=== PATIENT | male | born 1965 | race Caucasian/White ===

== ENCOUNTER 2016-04-29 17:33 | Emergency (ER) | payer BC, OTHER ==
[~2016-04-29] VITALS: Ht 180.3 cm; Wt 79.4 kg
[~2016-04-29 17:33] MED LIST: AMOX500C2 PO; AMPH20TA2 PO; ASP325T PO; ASPI-586 PO; CARV3.122 PO; CPR500T PO; CYCL10TA9 PO; DIAZ10TA; DOXY100C2 PO; FRS325T PO; HCA25SU PR; HYDR-3720 PO; HYDR-757 PO; HYDR118S10 PO; HYDR1TAB8 OP; IBUP800T26 PO; LSNP20T PO; METH10TA3 PO; MORP15TA69 PO; NAPR-243 PO; NAPR500T PO; NITR-65 PO; PRD20T PO; PRIMATENE MIST; PROP1TAB77 PO; SULF-222 PO; SULF1TAB35 PO; SULF1TAB38; TRAM-42 PO; TRM50T PO; [UNRECOGNIZED DRUG - OTHER]
--- OUTSIDE RECORDS SUMMARY | 2016-04-29 17:39 | XMS REPORT | Continuity of Care Document ---
Author Author [facility] Address Unknown Phone Unavailable Allergies Active Description Code Type Severity Reaction Onset Reported/Identified Relationship to Patient Clinical Status Yes levofloxacin [id number] Drug Allergy Mild N/A 09/10/2011 Medications Problems Date Dx Coded Attending Type Code Diagnosis Diagnosed By 09/10/2010 Ot 604.90 ORCHITIS/EPIDIDYMIT NOS 09/10/2010 Ot 608.9 MALE GENITAL DIS NOS 09/14/2010 Ot 604.90 ORCHITIS/EPIDIDYMIT NOS 05/04/2011 Ot 070.70 UNSPECIFIED VIRAL HEPATITIS C WITHOUT HE 05/04/2011 Ot 285.1 AC POSTHEMORRHAG ANEMIA 05/04/2011 Ot 289.51 CHR CONGEST SPLENOMEGALY 05/04/2011 Ot 296.80 BIPOLAR DISORDER, UNSPECIFIED 05/04/2011 Ot 305.20 CANNABIS ABUSE-UNSPEC 05/04/2011 Ot 305.50 OPIOID ABUSE-UNSPEC 05/04/2011 Ot 305.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 ABUSE-UNSPEC 05/04/2011 Ot 530.81 ESOPHAGEAL REFLUX 05/04/2011 Ot 535.60 DUODENITIS, WITHOUT MENTION OF HEMORRHAG 05/04/2011 Ot 553.3 DIAPHRAGMATIC HERNIA 05/04/2011 Ot 569.3 RECTAL ANAL HEMORRHAGE 05/04/2011 Ot 571.5 CIRRHOSIS OF LIVER NOS 05/04/2011 Ot 682.6 CELLULITIS OF LEG 05/04/2011 Ot 785.6 ENLARGEMENT LYMPH NODES 07/22/2011 Ot 724.2 LUMBAGO 09/13/2011 Ot 070.70 UNSPECIFIED VIRAL HEPATITIS C WITHOUT HE 09/13/2011 Ot 280.0 CHR BLOOD LOSS ANEMIA 09/13/2011 Ot 300.00 ANXIETY STATE NOS 09/13/2011 Ot 311 DEPRESSIVE DISORDER NEC 09/13/2011 Ot 403.90 HYPTNSV CHR KID DIS, UNSPEC, W CHR KD ST 09/13/2011 Ot 435.9 TRANS CEREB ISCHEMIA NOS 09/13/2011 Ot 455.2 INT HEMRRHOID W COMP NEC 09/13/2011 Ot 461.9 ACUTE SINUSITIS NOS 09/13/2011 Ot 585.9 CHRONIC KIDNEY DISEASE, UNSPECIFIED 09/13/2011 Ot 724.5 BACKACHE NOS 09/13/2011 Ot V15.82 HISTORY OF TOBACCO USE 10/07/2011 Ot 724.2 LUMBAGO 10/07/2011 Ot 724.3 SCIATICA 10/07/2011 Ot 846.0 SPRAIN LUMBOSACRAL 10/07/2011 Ot E000.8 OTHER EXTERNAL CAUSE STATUS 10/07/2011 Ot E849.0 ACCIDENT IN HOME 10/07/2011 Ot E880.9 FALL ON STAIR/STEP NEC 03/17/2012 Ot 285.9 ANEMIA NOS 03/17/2012 Ot 305.20 CANNABIS ABUSE-UNSPEC 03/17/2012 Ot 305.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 ABUSE-UNSPEC 03/17/2012 Ot 782.3 EDEMA 03/17/2012 Ot 788.20 RETENTION OF URINE NOS 03/17/2012 Ot V58.69 OTH MED,LT,CURRENT USE 07/13/2012 GISELL SCALES MD Ot 780.93 MEMORY LOSS 07/13/2012 GISELL SCALES MD Ot 786.05 SHORTNESS OF BREATH 07/31/2013 TOÑO BARRETO MD Ot 296.80 BIPOLAR DISORDER, UNSPECIFIED 07/31/2013 TOÑO BARRETO MD Ot 338.29 OTHER CHRONIC PAIN 07/31/2013 TOÑO BARRETO MD Ot 493.90 ASTHMA, UNSPECIFIED 07/31/2013 TOÑO BARRETO MD Ot 550.90 UNILAT INGUINAL HERNIA 07/31/2013 TOÑO BARRETO MD Ot 716.90 ARTHROPATHY NOS-UNSPEC 07/31/2013 TOÑO BARRETO MD Ot 722.6 DISC DEGENERATION NOS 07/31/2013 TOÑO BARRETO MD Ot V12.54 PERSONAL HX OF TIA, CEREBRAL INFARCTION 10/31/2013 LAURA LUNDBERG APRN Ot 354.1 MEDIAN NERVE LESION NEC 10/31/2013 LAURA LUNDBERG APRN Ot 782.0 SKIN SENSATION DISTURB 11/02/2013 LAURA LUNDBERG APRN Ot 724.1 PAIN IN THORACIC SPINE 11/02/2013 LAURA LUNDBERG APRN Ot 724.4 LUMBOSACRAL NEURITIS NOS 11/02/2013 LAURA LUNDBERG APRN Ot 782.0 SKIN SENSATION DISTURB 07/25/2014 Ot 070.54 07/25/2014 Ot 280.9 07/25/2014 Ot 305.90 07/25/2014 Ot 578.9 07/25/2014 Ot V15.82 07/25/2014 VESNA BATRES Ot 305.20 CANNABIS ABUSE-UNSPEC 07/25/2014 VESNA BATRES Ot 305.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 ABUSE-UNSPEC 07/25/2014 VESNA BATRES Ot 550.90 UNILAT INGUINAL HERNIA 07/25/2014 VESNA BATRES Ot 564.00 UNSPEC CONSTIPATION 07/25/2014 VESNA BATRES Ot 789.03 ABDOMINAL PAIN, RIGHT LOWER QUADRANT 09/08/2014 LAURA LUNDBERG PRESETTER OPERATOR Ot 604.99 ORCHITIS/EPIDIDYMIT NEC 09/08/2014 LAURA LUNDBERG PRESETTER OPERATOR Ot 608.86 EDEMA, MALE GENITAL ORGN 09/09/2014 LAURA LUNDBERG PRESETTER OPERATOR Ot 604.90 ORCHITIS/EPIDIDYMIT NOS 09/09/2014 LAURA LUNDBERG PRESETTER OPERATOR Ot 724.1 PAIN IN THORACIC SPINE 09/09/2014 LAURA LUNDBERG PRESETTER OPERATOR Ot 724.5 BACKACHE NOS 09/20/2014 VESNA BATRES Ot 599.0 URIN TRACT INFECTION NOS 09/20/2014 VESNA BATRES Ot 789.03 ABDOMINAL PAIN, RIGHT LOWER QUADRANT 09/20/2014 VESNA BATRES Ot 848.8 SPRAIN NEC 09/20/2014 VESNA BATRES Ot E000.8 OTHER EXTERNAL CAUSE STATUS 09/20/2014 VESNA BATRES Ot E928.9 ACCIDENT NOS 11/08/2014 Ot 070.54 11/08/2014 Ot 280.9 11/08/2014 Ot 305.90 11/08/2014 Ot 578.9 11/08/2014 Ot V15.82 11/08/2014 GYPSY YODER MD Ot 723.0 CERVICAL SPINAL STENOSIS 11/08/2014 GYPSY YODER MD Ot 723.4 BRACHIAL NEURITIS NOS 11/08/2014 GYPSY YODER MD Ot 782.0 SKIN SENSATION DISTURB 11/08/2014 Ot 070.54 11/08/2014 Ot 280.9 11/08/2014 Ot 305.90 11/08/2014 Ot 578.9 11/08/2014 Ot V15.82 03/17/2015 Ot 070.54 03/17/2015 Ot 280.9 03/17/2015 Ot 305.90 03/17/2015 Ot 578.9 03/17/2015 Ot V15.82 03/17/2015 PARESH PUTNAM, GYPSY Uriostegui Ot F12.10 CANNABIS ABUSE, UNCOMPLICATED 03/17/2015 PARESH PUTNAM, GYPSY Uriostegui Ot F15.10 OTHER STIMULANT ABUSE, UNCOMPLICATED 03/17/2015 PARESH PUTNAM, GYPSY Uriostegui Ot F17.210 NICOTINE DEPENDENCE, CIGARETTES, UNCOMPL 03/17/2015 GYPSY YODER MD Ot L03.012 CELLULITIS OF LEFT FINGER 03/17/2015 GYPSY YODER MD Ot S61.215A LACERATION W/O FB OF L RNG FNGR W/ O THIAGO 03/17/2015 GYPSY YODER MD Ot W26.0XXA CONTACT WITH KNIFE, INITIAL ENCOUNTER 03/17/2015 PARESH PUTNAM, GYPSY Uriostegui Ot Y92.[address] [facility] [address] NON-INSTITUT ( PRIVATE 03/17/2015 GYPSY YODER MD Ot Y99.8 OTHER EXTERNAL CAUSE STATUS 03/17/2015 GYPSY YODER MD Ot Z23 ENCOUNTER FOR IMMUNIZATION 05/08/2015 Ot 070.54 05/08/2015 Ot 280.9 05/08/2015 Ot 305.90 05/08/2015 Ot 578.9 05/08/2015 Ot V15.82 05/08/2015 CAMPOS DO, FITZ L Ot K59.00 CONSTIPATION, UNSPECIFIED 05/29/2015 CAMPOS DO, FITZ L Ot K59.00 06/20/2015 Ot 070.54 CHRONIC HEPATITIS C W/O HEPATIC COMA 06/20/2015 Ot 280.9 IRON DEFIC ANEMIA NOS 06/20/2015 Ot 305.90 DRUG ABUSE NEC-UNSPEC 06/20/2015 Ot 578.9 GASTROINTEST HEMORR NOS 06/20/2015 Ot V15.82 HISTORY OF TOBACCO USE 06/20/2015 VESNA BATRES Ot L03.116 CELLULITIS OF LEFT LOWER LIMB 06/20/2015 VESNA BATRES Ot Z23 ENCOUNTER FOR IMMUNIZATION 06/20/2015 VESNA BATRES Ot Z87.891 PERSONAL HISTORY OF NICOTINE DEPENDENCE 07/18/2015 VESNA BATRES Ot L03.116 CELLULITIS OF LEFT LOWER LIMB 07/18/2015 VESNA BATRES Ot Z23 ENCOUNTER FOR IMMUNIZATION 07/18/2015 VESNA BARTES Ot Z87.891 PERSONAL HISTORY OF NICOTINE DEPENDENCE Procedures Code Description Performed By Performed On 45.16 05/02/2011 45.23 05/02/2011 45.23 09/12/2011 Results Encounters ACCT No. Visit Date/Time Discharge Status Pt. Type Provider Facility Loc./Unit Complaint [id number] 03/10/2014 15:52:00 03/10/2014 23: 59:59 [facility] Outpatient [place] D[place] [id number] 07/27/2008 15:40:00 07/27/2008 23: 59:59 [facility] Outpatient WILLIS BOWDEN
[2016-04-29] MEDS ORDERED: LIDOCAINE 2% 20 ML (XYLOCAINE) VIAL INJ ONE (17:45)
--- NOTE | 2016-04-29 17:49 | ED Lower Extremity ---
General Stated Complaint: L KNEE PAIN Source: patient Exam Limitations: no limitations History of Present Illness Time seen by provider: 17:48 Initial Comments To ER with left knee pain. This been ongoing for a few days. States that it pops and clicks when he is riding his bicycle. Today it seems swollen. No fevers or chills. Onset: just prior to arrival Severity: moderate Pain/Injury Location: left knee Method of Injury: unknown Modifying Factors: Worse With Movement Allergies and Home Medications Allergies Coded Allergies: levofloxacin (Verified Allergy, Mild, 09/10/11) Home Medications Aspirin 81 Mg Tablet.dr 81 MG PO DAILY (Reported) Hydrocodone Bit/Acetaminophen 1 Each Tablet #10 1 EA PO Q6H PRN PRN MILD PAIN Do not fill unless Bactrim DS is also filled. Prescribed by: LAURA LUNDBERG on 09/09/14 1132 Ibuprofen 800 Mg Tablet #30 800 MG PO Q8H PRN PRN PAIN Prescribed by: LAURA LUNDBERG on 04/29/16 1807 Methylphenidate HCl 10 Mg Tablet Unknown Dose PO DAILY (Reported) Morphine Sulfate 15 Mg Tablet.er 15 MG PO DAILY (Reported) Naproxen 500 Mg Tablet #20 500 MG PO BID PRN PRN PAIN Prescribed by: VESNA POWELL on 06/20/15 1634 Sulfamethoxazole/Trimethoprim 1 Each Tablet #20 1 EACH PO BID Take 2 tablets for the first dose Prescribed by: GYPSY ABRAMS on 03/17/15 1158 Sulfamethoxazole/Trimethoprim 1 Each Tablet #20 1 EACH PO BID Prescribed by: VESNA POWELL on 06/20/15 1634 Tramadol HCl 50 Mg Tablet 50 MG PO Q6H PRN PRN PAIN (Reported) Constitutional: see HPINo chills, No fever EENTM: see HPI Respiratory: no symptoms reported Cardiovascular: no symptoms reported Genitourinary: no symptoms reported Musculoskeletal: see HPI joint swelling Skin: no symptoms reported Psychiatric/Neurological: No Symptoms Reported Past Cklweyl-Ugggth-Jxpewn Hx Patient Social History Former Smoker/When Quit: Mar 03, 1997 Recent Foreign Travel: No Contact w/Someone Who Travel: No Immunizations Up To Date Tetanus Booster (TDap): Unknown Seasonal Allergies Seasonal Allergies: No Surgeries HX Surgeries: Yes (BACK SURGERY, STABBED IN LEFT KNEE) Surgeries: Gallbladder Respiratory Hx Respiratory Disorders: Yes Respiratory Disorders: Asthma Cardiovascular Hx Cardiac Disorders: Yes ( REPORTS HX HTN) Cardiac Disorders: Hypertension Neurological Hx Neurological Disorders: Yes (APHASIA HX, narcolepsy) Neurological Disorders: TIA Reproductive System Sexually Transmitted Disease: No Genitourinary Hx Genitourinary Disorders: Yes Genitourinary Disorders: Renal Failure Gastrointestinal Hx Gastrointestinal Disorders: Yes (HERNIA) Gastrointestinal Disorders: Gastrointestinal Bleed, Hepatitis Musculoskeletal Hx Musculoskeletal Disorders: Yes (REMOVED A DISC. chronic left foot pain) Musculoskeletal Disorders: Degenerate Disk Disease, Arthritis, Back Injury, Chronic Back Pain Endocrine Hx Endocrine Disorders: No HEENT HX ENT Disorders: No Cancer Hx Cancer: No Psychosocial Hx Psychiatric Problems: No (INFORMATION OBTAINED FROM OLD RECORDS) Behavioral Health Disorders: Bipolar, Personality Disorder Integumentary HX Skin/Integumentary Disorder: No Blood Transfusions Hx Blood Disorders: Yes (unknown bleeding disorder (seeing electrode cleaner for it) , anemia, transfusion) Family Medical History Significant Family History: No Pertinent Family Hx Physical Exam Vital Signs Vital Sign - Last 12Hours 04/29/16 17:36 Temp 97.6 Pulse 105 Resp 18 B/P 152/109 Capillary Refill : General Appearance: WD/WN no apparent distress HEENT: PERRL/EOMI normal ENT inspection Neck: non-tender full range of motion Respiratory: no respiratory distress no accessory muscle use Hips: bilateral hip non-tender, bilateral hip normal inspection, bilateral hip normal range of motion Legs: bilateral leg non-tender, bilateral leg normal inspection, bilateral leg normal range of motion Knees: left knee pain, left knee soft tissue tenderness, left knee other (no erythema or ecchymosis. However there is a palpable effusion) Ankles: bilateral ankle non-tender, bilateral ankle normal inspection, bilateral ankle normal range of motion Feet: bilateral foot non-tender, bilateral foot normal inspection, bilateral foot normal range of motion Neurologic/Psychiatric: alert normal mood/affect oriented x 3 Skin: normal color warm/dry Progress/Results/Core Measures Results/Orders Lab Results Laboratory Tests Test 04/29/16 17:58 Range/Units Body Fluid Appearance MOD CLDY Body Fluid Color YELLOW Body Fluid Crystals NOT SEEN Body Fluid RBC 6900 /uL Body Fluid Source SYNOVIAL Body Fluid WBC 150 /uL My Orders Orders-LAURA LUNDBERG APRN Lidocaine 2% Injection 20 Ml (Xylocaine (04/29/16 17:45) Body Fluid Cell Count (04/29/16 17:45) Crystals,Body Fluid (04/29/16 17:45) Body Fluid Culture (04/29/16 17:47) Knee, Left, 3 Views (04/29/16 18:04) Ketorolac Injection (Toradol Injection) (04/29/16 18:15) Medications Given in ED Current Medications Medications Dose Ordered Sig/Venkat Route Start Time Stop Time Status Last Admin Dose Admin Ketorolac Tromethamine 60 mg ONCE ONCE IM 04/29/16 18:15 04/29/16 18:16 DC 04/29/16 18:14 60 MG Lidocaine HCl 20 ml ONCE ONCE INJ 04/29/16 17:45 04/29/16 17:47 DC 04/29/16 18:17 3 ML Vital Signs/I&O Vital Sign - Last 12Hours 04/29/16 17:36 Temp 97.6 Pulse 105 Resp 18 B/P 152/109 Departure Communication Progress Notes 1805-under sterile technique, knee was aspirated. The knee was cleaned with iodine and allowed to dry over the medial aspect. This was anesthetized with 3 mL of 2 percent lidocaine without epinephrine. A larger 18-gauge 1/2 inch needle attached to a 20 mL syringe using sterile technique was inserted into the joint space and 25 mL of kate colored clear fluid was aspirated. This was sent to lab for cell count, culture, Crystal analysis. Impression Impression: Primary Impression: Knee effusion, left Additional Impression: Internal derangement of knee Disposition: 01 HOME, SELF-CARE Condition: Stable Departure-Patient Inst. Decision time for Depature: 18:06 Referrals: MARISOL NOLASCO MD [facility] (PCP/Family) Primary Care Physician SANDY MORALES MD, JOHN T MD STRINGER, ROBERT F DO ZAFUTA,TED Vizcarra MD Patient Instructions: Internal Derangement of the Knee Add. Discharge Instructions: 1. Follow-up with the orthopedic surgeons listed 2. Call tomorrow for an appointment 3. Medication as directed Scripts Ibuprofen 800 Mg Svasra178 Mg PO Q8H PRN PAIN #30 TAB Prov:LAURA LUNDBERG LEGAL ARCHIVIST 04/29/16 LAURA LUNDBERG LEGAL ARCHIVIST Apr 29, 2016 17:49
[2016-04-29] MEDS ORDERED: IBUP-1780 PO (18:07)
[2016-04-29] MEDS ORDERED: KETOROLAC 60 MG/2 ML VIAL IM ONE (18:15)
--- NOTE | 2016-04-29 18:45 | Diagnostic Imaging Report ---
INDICATION: A 50-year-old male presents with left knee pain. COMPARISONS: 06/20/2015. FINDINGS: Three views of the left knee show degenerative changes in the left knee with some marginal osteophytes. There is however no evidence of new or healing fractures. A suprapatellar joint effusion is suggested. No evidence of acute fracture or subluxation is seen. IMPRESSION: 1. Moderate degenerative changes of the left knee, but no evidence of acute fracture or subluxation. 2. A suprapatellar joint effusion noted. Perhaps, an MRI may be of further value to assess for internal derangement. Dictated by: Dictated on workstation # [id number]
[2016-04-29 18:50] VITALS: BP 148/98
== END 2016-04-29 18:47 | disposition home or self-care (01) ==
LOC: EDUNIT# 17:33 → ER 17:35
DX: M25.462 Effusion, left knee (principal); M23.92 Unspecified internal derangement of left knee; Z79.82 Long term (current) use of aspirin; Z79.899 Other long term (current) drug therapy
CPT/HCPCS: 73562; 87070; 87205; 89051; 89060; 96372; 99283

== ENCOUNTER → 2016-04-30 | Outpatient (CLI) | payer OTHER ==
[~2016-04-30] MED LIST changes: +CYCL5TAB PO; +IBUP-1780 PO
--- OUTSIDE RECORDS SUMMARY | 2016-04-30 08:34 | XMS REPORT | Continuity of Care Document ---
Author Author [facility] Address Unknown Phone Unavailable Allergies Active Description Code Type Severity Reaction Onset Reported/Identified Relationship to Patient Clinical Status Yes levofloxacin [id number] Drug Allergy Mild N/A 09/10/2011 Medications Problems [...] PAIN, RIGHT LOWER QUADRANT 09/08/2014 LAURA LUNDBERG MECHANICAL DEVELOPMENT ENGINEER Ot 604.99 ORCHITIS/EPIDIDYMIT NEC 09/08/2014 LAURA LUNDBERG MECHANICAL DEVELOPMENT ENGINEER Ot 608.86 EDEMA, MALE GENITAL ORGN 09/09/2014 LAURA LUNDBERG MECHANICAL DEVELOPMENT ENGINEER Ot 604.90 ORCHITIS/EPIDIDYMIT NOS 09/09/2014 LAURA LUNDBERG MECHANICAL DEVELOPMENT ENGINEER Ot 724.1 PAIN IN THORACIC SPINE 09/09/2014 LAURA LUNDBERG MECHANICAL DEVELOPMENT ENGINEER Ot 724.5 BACKACHE NOS 09/20/2014 VESNA BATRES [...] 03/17/2015 PARESH PUTNAM, GYPSY Uriostegui Ot Y92.[address] [facility] Ot Z23 ENCOUNTER FOR IMMUNIZATION 07/18/2015 VESNA BATRES Ot Z87.891 PERSONAL HISTORY OF NICOTINE DEPENDENCE Procedures Code Description Performed By Performed On 45.16 05/02/2011 45.23 05/02/2011 45.23 09/12/2011 Results Test Result Range Body fluid cell count - 04/29/16 17:58 Specimen source identification of body fluid SYNOVIAL NRG Evaluation of color of body fluid YELLOW NRG Determination of appearance of body fluid MOD CLDY NRG Body fluid leukocytes count (number/volume) 150 /uL NRG Body fluid erythrocytes count (number/volume) 6900 /uL NRG Manual body fluid polymorphonuclear cells/100 leukocytes 12 % NRG Manual body fluid mononuclear cells/100 leukocytes 4 % NRG Manual body fluid lymphocytes/100 leukocytes 84 % NRG Other cells/100 leukocytes in body fluid by manual count 0 % NRG * Body fluid crystals type by light microscopy - 04/29/16 17:58 * Body fluid crystals type by light microscopy NOT SEEN NRG Encounters ACCT No. Visit Date/Time Discharge Status Pt. Type Provider Facility Loc./Unit Complaint [id number] 03/10/2014 15:52:00 03/10/2014 23: 59:59 [facility] Outpatient [place]FINO [place]ELHO D[place] [id number] 07/27/2008 15:40:00 07/27/2008 23: 59:59 [facility] Outpatient WILLIS BOWDEN
--- NOTE | 2016-04-30 11:18 | Diagnostic Imaging Report ---
PROCEDURE: US Abdomen, limited. TECHNIQUE: Multiple realtime grayscale images were obtained over the abdomen in various projections. INDICATION: Pain near the right inguinal region. FINDINGS: Examination for hernia with and without Valsalva maneuver demonstrates no evidence of hernia. No fluid collection or a mass is identified in the region. Bowel gas obscures deeper structures. IMPRESSION: No definite abnormality. Dictated by: Dictated on workstation # [id number]
== END ==
LOC: RAD 08:30
PROVIDERS: ATTEND Family Medicine
DX: R10.31 Right lower quadrant pain (principal)
CPT/HCPCS: 76705

== ENCOUNTER 2016-07-06 15:42 | Emergency (ER) | payer SELFPAY ==
[~2016-07-06] VITALS: Ht 182.9 cm; Wt 78.0 kg
[~2016-07-06 15:42] MED LIST changes: -CYCL5TAB PO
[2016-07-06] MEDS ORDERED: ORPHENADRINE 60 MG/2 ML (NORFLEX) AMP IM ONE (16:15)
[2016-07-06] MEDS ORDERED: KETOROLAC 60 MG/2 ML VIAL IM ONE (16:15)
--- NOTE | 2016-07-06 16:15 | ED Back Pain ---
General Stated Complaint: BACK PAIN Source of Information: Patient Exam Limitations: No Limitations History of Present Illness Time Seen by Provider: 16:13 Initial Comments Patient to ER with 2-3 days of right low back pain. This radiates to the right hip and right flank. He states that he is only urinated one time today. This began 2-3 days ago when he was lifting the cover off of a washing machine. Pain is worsened by movement. No cough or shortness of breath. No loss of bowel or bladder control. No saddle anesthesia or hypoesthesia. Pain does not radiate down the leg. Patient is well-known to the emergency room here for his frequent complaints of back pain. Location: Lumbar Spine, Paraspinous Muscles Timing/Duration: 2-3 Days Severity: Moderate Associated Symptoms: lower back pain Allergies and Home Medications Allergies Coded Allergies: levofloxacin (Verified Allergy, Mild, 09/10/11) Home Medications Aspirin 81 Mg Tablet.dr, 81 MG PO DAILY, (Reported) Cyclobenzaprine HCl 5 Mg Tablet, 5 MG PO TID PRN for PAIN-MILD TO MODERATE, #20 Prescribed by: LAURA LUNDBERG on 07/06/16 1721 Hydrocodone Bit/Acetaminophen 1 Each Tablet, 1 EA PO Q6H PRN for MILD PAIN, #10 Do not fill unless Bactrim DS is also filled. Prescribed by: LAURA LUNDBERG on 09/09/14 1132 Ibuprofen 800 Mg Tablet, 800 MG PO Q8H PRN for PAIN, #30 Prescribed by: LAURA LUNDBERG on 04/29/16 1807 Methylphenidate HCl 10 Mg Tablet, Unknown Dose PO DAILY, (Reported) Morphine Sulfate 15 Mg Tablet.er, 15 MG PO DAILY, (Reported) Naproxen 500 Mg Tablet, 500 MG PO BID PRN for PAIN, #20 Ref 0 Prescribed by: VESNA POWELL on 06/20/15 1634 Sulfamethoxazole/Trimethoprim 1 Each Tablet, 1 EACH PO BID, #20 Take 2 tablets for the first dose Prescribed by: GYPSY ABRAMS on 03/17/15 1158 Sulfamethoxazole/Trimethoprim 1 Each Tablet, 1 EACH PO BID, #20 Ref 0 Prescribed by: VESNA POWELL on 06/20/15 1634 Tramadol HCl 50 Mg Tablet, 50 MG PO Q6H PRN for PAIN, (Reported) Constitutional: see HPI, No chills, No fever EENTM: see HPI Respiratory: no symptoms reported Cardiovascular: no symptoms reported Genitourinary: no symptoms reported Musculoskeletal: see HPI, back pain Skin: no symptoms reported Psychiatric/Neurological: No Symptoms Reported Past Ixcnpch-Jenxeh-Atxygb Hx Patient Social History Former Smoker/When Quit: Mar 03, 1997 Recent Foreign Travel: No Contact w/Someone Who Travel: No Recent Hopitalizations: Yes Immunizations Up To Date Tetanus Booster (TDap): Unknown Seasonal Allergies Seasonal Allergies: No Surgeries HX Surgeries: Yes (BACK SURGERY, STABBED IN LEFT KNEE) Surgeries: Gallbladder Respiratory Hx Respiratory Disorders: Yes Respiratory Disorders: Asthma Cardiovascular Hx Cardiac Disorders: Yes ( REPORTS HX HTN) Cardiac Disorders: Hypertension Neurological Hx Neurological Disorders: Yes (APHASIA HX, narcolepsy) Neurological Disorders: TIA Reproductive System Sexually Transmitted Disease: No Genitourinary Hx Genitourinary Disorders: Yes Genitourinary Disorders: Renal Failure Gastrointestinal Hx Gastrointestinal Disorders: Yes (HERNIA) Gastrointestinal Disorders: Gastrointestinal Bleed, Hepatitis Musculoskeletal Hx Musculoskeletal Disorders: Yes (REMOVED A DISC. chronic left foot pain) Musculoskeletal Disorders: Degenerate Disk Disease, Arthritis, Back Injury, Chronic Back Pain Endocrine Hx Endocrine Disorders: No HEENT HX ENT Disorders: No Cancer Hx Cancer: No Psychosocial Hx Psychiatric Problems: No (INFORMATION OBTAINED FROM OLD RECORDS) Behavioral Health Disorders: Bipolar, Personality Disorder Integumentary HX Skin/Integumentary Disorder: No Blood Transfusions Hx Blood Disorders: Yes (unknown bleeding disorder (seeing court crier for it) , anemia, transfusion) Family Medical History Significant Family History: No Pertinent Family Hx Physical Exam Vital Signs Vital Sign - Last 12Hours 07/06/16 07/06/16 16:10 17:24 Temp 98.9 Pulse 117 Resp 16 B/P (MAP) 134/100 Pulse Ox 98 Capillary Refill : General Appearance: No Apparent Distress, WD/WN HEENT: PERRL/EOMI, TMs Normal Neck: Full Range of Motion, Normal Inspection Respiratory: No Accessory Muscle Use, No Respiratory Distress Gastrointestinal: Non Tender, Soft Back: Other (right low back panel padder to palpation) Extremity: Normal Capillary Refill, Normal Inspection Neurologic/Psychiatric: Alert, Oriented x3, No Motor/Sensory Deficits Skin: Normal Color, Warm/Dry Progress/Results/Core Measures Results/Orders My Orders Orders - LAURA LUNDBERG APRN Ct Abd/Pelvis Wo(Kidney Stone) (07/06/16 16:12) Ketorolac Injection (Toradol Injection) (07/06/16 16:15) Orphenadrine Injection (Norflex Injectio (07/06/16 16:15) Medications Given in ED Current Medications Medications Dose Ordered Sig/Venkat Route Start Time Stop Time Status Last Admin Dose Admin Ketorolac Tromethamine 60 mg ONCE ONCE IM 07/06/16 16:15 07/06/16 16:16 DC 07/06/16 16:37 60 MG Orphenadrine Citrate 60 mg ONCE ONCE IM 07/06/16 16:15 07/06/16 16:16 DC 07/06/16 16:38 60 MG Vital Signs/I&O Vital Sign - Last 12Hours 07/06/16 07/06/16 16:10 17:24 Temp 98.9 Pulse 117 77 Resp 16 16 B/P (MAP) 134/100 Pulse Ox 98 Diagnostic Imaging Diagonstic Imaging: Xray Comments NAME: JONAS VIEIRA [facility] REC#: [id number] PT STATUS: REG ER : 1965 PHYSICIAN: LAURA LUNDBERG APRN ADMIT DATE: 07/06/16/ER Draft Date of Exam:07/06/16 CT ABD/PELVIS WO(KIDNEY STONE) PROCEDURE: CT urinary tract, rule out kidney stone. TECHNIQUE: Multiple contiguous axial images were obtained through the abdomen and pelvis without the use of intravenous contrast. INDICATION: Kidney stones, chronic right lower back pain that is worse in the last 3-4 days. EXAMINATION: CT abdomen and pelvis without contrast, 07/06/2016. COMPARISON: 07/25/2014. FINDINGS: The lung bases demonstrate bibasilar dependent atelectasis. Within the abdomen and pelvis no nephrolithiasis or hydronephrosis is seen on either side with no definite ureteral stones appreciated. There is a tiny hyperdensity along the right anterior to the right psoas muscle which appears to be lateral to the expected location of the right ureter. There are multiple calcifications within the right hemipelvis. These appear to represent platelets. The urinary bladder wall is thickened but could be due to under-distention versus size, correlate clinically. Findings of constipation noted throughout the colon. No surrounding inflammatory changes appreciated. The remaining abdominal viscera is limited due to the lack of IV contrast but no acute abnormality is seen in the spleen with clips in the right upper quadrant consistent with previous cholecystectomy. The adrenal glands appear unremarkable. The pancreas is grossly normal in appearance, as well. The osseous structures demonstrate multilevel diffuse degenerative findings throughout the spine and hips. There are multiple clips in the left lower pelvis posteriorly. Atherosclerotic disease is seen along the course of the aorta and its branches. IMPRESSION: 1. Chronic findings with findings of constipation also noted. No definite acute abnormality in the abdomen pelvis but if there is persistent abdominal pain, post IV contrast administration imaging recommended. 2. Chronic changes within the osseous structures, as noted above. If pain is in the lumbar region, MRI could better evaluate the central canal and nerve roots. 3. Other incidental findings, as described above. Dictated on workstation # [id number] Dict: 07/06/16 170 Trans: 07/06/16 1713 [facility] [id number] Interpreted by: BRITTANY SCHAFER MD Electronically signed by: Departure Communication Progress Notes Patient refuses to provide urine sample. At time of discharge patient became upset stating "if I wasn't in pain I wouldn't be here. " His is also call the hospital stating that she was going to own my license, rohith the hospital and me because I misdiagnosed his pain. Impression Impression: Primary Impression: Back strain Additional Impression: Chronic back pain Disposition: 01 HOME, SELF-CARE Condition: Stable Departure-Patient Inst. Decision time for Depature: 17:20 Referrals: LORENZO DAWKINS MD (PCP/Family) Primary Care Physician Patient Instructions: Lumbar Muscle Strain (DC) Add. Discharge Instructions: 1. Warm compresses to her back 2. Return to ER for any worsening 3. Drink plenty of fluids Scripts Cyclobenzaprine HCl (Cyclobenzaprine HCl) 5 Mg Tablet 5 MG PO TID Y for PAIN-MILD TO MODERATE, #20 TAB Prov: LAURA LUNDBERG APRN 07/06/16 LAURA LUNDBERG APRN July 06, 2016 16:15
--- NOTE | 2016-07-06 17:14 | Diagnostic Imaging Report ---
PROCEDURE: CT urinary tract, rule out kidney stone. TECHNIQUE: Multiple contiguous axial images were obtained through the abdomen and pelvis without the use of intravenous contrast. INDICATION: Kidney stones, chronic right lower back pain that is worse in the last 3-4 days. EXAMINATION: CT abdomen and pelvis without contrast, 07/06/2016. COMPARISON: 07/25/2014. FINDINGS: The lung bases demonstrate bibasilar dependent atelectasis. Within the abdomen and pelvis no nephrolithiasis or hydronephrosis is seen on either side with no definite ureteral stones appreciated. There is a tiny hyperdensity along the right anterior to the right psoas muscle which appears to be lateral to the expected location of the right ureter. There are multiple calcifications within the right hemipelvis. These appear to represent platelets. The urinary bladder wall is thickened but could be due to under-distention versus size, correlate clinically. Findings of constipation noted throughout the colon. No surrounding inflammatory changes appreciated. The remaining abdominal viscera is limited due to the lack of IV contrast but no acute abnormality is seen in the spleen with clips in the right upper quadrant consistent with previous cholecystectomy. The adrenal glands appear unremarkable. The pancreas is grossly normal in appearance, as well. The osseous structures demonstrate multilevel diffuse degenerative findings throughout the spine and hips. There are multiple clips in the left lower pelvis posteriorly. Atherosclerotic disease is seen along the course of the aorta and its branches. IMPRESSION: 1. Chronic findings with findings of constipation also noted. No definite acute abnormality in the abdomen pelvis but if there is persistent abdominal pain, post IV contrast administration imaging recommended. 2. Chronic changes within the osseous structures, as noted above. If pain is in the lumbar region, MRI could better evaluate the central canal and nerve roots. 3. Other incidental findings, as described above. Dictated by: Dictated on workstation # [id number]
[2016-07-06] MEDS ORDERED: CYCL5TAB PO (17:21)
[2016-07-06 17:24] VITALS: BP 154/96
== END 2016-07-06 17:24 | disposition home or self-care (01) ==
LOC: EDUNIT# 15:42 → ER 15:45
DX: S39.012A Strain of muscle, fascia and tendon of lower back, initial encounter (principal); K59.00 Constipation, unspecified; X50.9XXA Other and unspecified overexertion or strenuous movements or postures, initial encounter; Z79.82 Long term (current) use of aspirin; Z79.899 Other long term (current) drug therapy; Y92.009 Unspecified place in unspecified non-institutional (private) residence as the place of occurrence of the external cause; Y99.8 Other external cause status
CPT/HCPCS: 74176; 96372; 99281

== ENCOUNTER 2016-07-24 11:33 | Emergency (ER) | payer OTHER ==
[~2016-07-24] VITALS: Ht 182.9 cm; Wt 80.3 kg
[~2016-07-24 11:33] MED LIST changes: +CYCL5TAB PO
--- NOTE | 2016-07-24 12:16 | ED GU-Male ---
General Chief Complaint: Abdominal/GI Problems Stated Complaint: LOWER RIGHT SIDE ABD PAIN Nursing Triage Note: PT CO OF ABD PAIN IN R LOWER ABD, STATES HAS HERNIA, HAS HAD FOR ABOUT 1 YR, CO OF PAIN IN AREA TODAY RATES 9/10. [facility] HAS SEEN DR SILVER ABOUT 1 YR AGO FOR CONSULT Source: patient Exam Limitations: no limitations History of Present Illness Time seen by provider: 12:16 Allergies and Home Medications Allergies Coded Allergies: levofloxacin (Verified Allergy, Mild, 09/10/11) Past Aquuytw-Oqigkc-Hordvm Hx Patient Social History Alcohol Use: Denies Use Recreational Drug Use: Yes (opiates and marijuana + on admission) Drug of Choice: POT Smoking Status: Former Smoker Type Used: Cigarettes Former Smoker/When Quit: Mar 03, 1997 Recent Foreign Travel: No Contact w/Someone Who Travel: No Recent Infectious Disease Expo: No Recent Hopitalizations: No Immunizations Up To Date Tetanus Booster (TDap): Unknown Seasonal Allergies Seasonal Allergies: No Surgeries HX Surgeries: Yes (BACK SURGERY, STABBED IN LEFT KNEE) Surgeries: Gallbladder Respiratory Hx Respiratory Disorders: Yes Respiratory Disorders: Asthma Cardiovascular Hx Cardiac Disorders: Yes ( REPORTS HX HTN) Cardiac Disorders: Hypertension Neurological Hx Neurological Disorders: Yes (APHASIA HX, narcolepsy) Neurological Disorders: TIA Reproductive System Sexually Transmitted Disease: No Genitourinary Hx Genitourinary Disorders: Yes Genitourinary Disorders: Renal Failure Gastrointestinal Hx Gastrointestinal Disorders: Yes (HERNIA) Gastrointestinal Disorders: Gastrointestinal Bleed, Hepatitis Musculoskeletal Hx Musculoskeletal Disorders: Yes (REMOVED A DISC. chronic left foot pain) Musculoskeletal Disorders: Degenerate Disk Disease, Arthritis, Back Injury, Chronic Back Pain Endocrine Hx Endocrine Disorders: No HEENT HX ENT Disorders: No Cancer Hx Cancer: No Psychosocial Hx Psychiatric Problems: No (INFORMATION OBTAINED FROM OLD RECORDS) Behavioral Health Disorders: Bipolar, Personality Disorder Integumentary HX Skin/Integumentary Disorder: No Blood Transfusions Hx Blood Disorders: Yes (unknown bleeding disorder (seeing medical scheduler for it) , anemia, transfusion) Family Medical History Significant Family History: No Pertinent Family Hx Physical Exam Vital Signs Vital Sign - Last 12Hours 07/24/16 11:40 Temp 97.4 Pulse 86 Resp 18 B/P (MAP) 175/113 Pulse Ox 98 Capillary Refill : Less Than 3 Seconds Progress/Results/Core Measures Results/Orders My Orders Orders - VESNA POWELL Us Scrotum (Testicle) [id number] (5/24/17 12:26) Oxycodone/Apap 5/325mg Tablet (Percocet (07/24/16 12:26) Acute Abd Series (07/24/16 12:30) Vital Signs/I&O Vital Sign - Last 12Hours 07/24/16 11:40 Temp 97.4 Pulse 86 Resp 18 B/P (MAP) 175/113 Pulse Ox 98 Blood Pressure Mean: 133 Departure Impression Impression: Primary Impression: Bilateral inguinal hernia, without obstruction or gangrene, not specified as recurrent Disposition: 01 HOME, SELF-CARE Condition: Improved Departure-Patient Inst. Decision time for Depature: 13:45 Referrals: [facility] D DO GAULT, HOLLY R MD (PCP/Family) Primary Care Physician NAZ ESQUIVEL MD, TAKAAKI MD Patient Instructions: Groin Hernia (DC) Add. Discharge Instructions: All discharge instructions reviewed with patient and/or family. Voiced understanding. Tylenol extra strength [id number] as directed for pain. Ibuprofen 8 Mg by mouth every 8 hours as needed for pain. Avoid heavy lifting, pushing, pulling. Follow-up with the general surgeon of your choice for discussion of possible need for repair. Call for appointment time today. Return to the emergency department for worsened pain, swelling, fever, vomiting , or any other concerns. Work/School Note: Work Release Form Date Seen in the Emergency Department: July 24, 2016 Return to Work: July 25, 2016 VESNA POWELL July 24, 2016 12:16
[2016-07-24] MEDS ORDERED: oxyCODONE/APAP 5/325MG (PERCOCET 5) TABLET PO STA (12:26)
--- NOTE | 2016-07-24 13:19 | Diagnostic Imaging Report ---
INDICATION: Abdominal pain in the right lower abdomen, has hernia x 1 year, complaining of pain in the area today. COMPARISON STUDY: CT scan from July 06. FINDINGS: The upright view of the chest demonstrates the lungs to be clear. The heart size and vascularity are normal. There are no effusions. Post operative changes are present in the cervical spine. Supine and upright views of the abdomen demonstrate a normal bowel gas pattern. Surgical clips are present in the left lower quadrant. Minimal degenerative changes are present in the spine. IMPRESSION: There are no acute findings. Dictated by: Dictated on workstation # [id number]
--- NOTE | 2016-07-24 13:30 | Diagnostic Imaging Report ---
Scrotal ultrasound. INDICATION: Right groin and scrotal pain. FINDINGS: The right testicle is 3.8 x 2.2 x 3.0 cm. The left testicle is 5.0 x 2.2 x 3.4 cm. There is no testicular mass. Arterial waveforms are demonstrated over the right testicle. Arterial waveforms over the left testicle also demonstrated. No significant hydrocele or varicocele. In the inguinal canal on both sides, there is slight soft tissue fullness which appears to enlarge and slightly move with Valsalva maneuver. This is suggestive of a small fat-containing indirect inguinal hernia. No definite bowel loop is seen. IMPRESSION: Suggestion of bilateral small indirect inguinal hernias. This probably contains only omental fat and is limited to the inguinal canal on both sides. Dictated by: Dictated on workstation # [id number]
[2016-07-24 13:55] VITALS: BP 165/100
== END 2016-07-24 13:55 | disposition home or self-care (01) ==
LOC: EDUNIT# 11:33 → ER 11:35
DX: K40.20 Bilateral inguinal hernia, without obstruction or gangrene, not specified as recurrent (principal)
CPT/HCPCS: 74022; 76870; 99282

== ENCOUNTER 2016-08-06 05:45 | Outpatient (CLI) | payer OTHER ==
[~2016-08-06] VITALS: Ht 182.9 cm; Wt 80.4 kg
== END 2016-08-06 11:41 ==
LOC: PREOP 05:45
PROVIDERS: ATTEND Surgery
DX: Z01.818 Encounter for other preprocedural examination (principal); K40.90 Unilateral inguinal hernia, without obstruction or gangrene, not specified as recurrent

== ENCOUNTER 2016-08-09 05:59 | Day surgery (SDC) | payer OTHER ==
[~2016-08-09] VITALS: Ht 182.9 cm; Wt 80.4 kg
[2016-08-09 06:20] VITALS: BP 148/117
[2016-08-09] MEDS ORDERED: ceFAZolin 1,000 MG (ANCEF) VIAL ONE (06:28)
[2016-08-09] MEDS ORDERED: NS (IVPB) 0 ML ONE (06:28)
[2016-08-09] MEDS ORDERED: ceFAZolin 1 GM/NS 50 ML IVPB IV ONE ×2 (07:15)
--- NOTE | 2016-08-09 07:49 | Progress Note-Standard ---
Standard Progress Note Progress Notes/Assess & Plan Date Seen by Provider: Aug 09, 2016 Time Seen by Provider: 07:25 Progress/Assessment & Plan Patient wound found to be positive for methamphetamine and hypertensive. The anesthesiologist had cancelled surgery and I've instructed him to avoid drugs and seek care with his primary physician Yany Skinner regarding hypertension Final Diagnosis Right inguinal hernia. Methamphetamine use NAZ ESQUIVEL MD Aug 09, 2016 7:49 am
[2016-08-09] MEDS ORDERED: LACTATED RINGERS 1,000 ML IV SCH (08:15)
== END 2016-08-09 07:45 | disposition home or self-care (01) ==
LOC: SDC 05:59
PROVIDERS: ATTEND Surgery
DX: K40.90 Unilateral inguinal hernia, without obstruction or gangrene, not specified as recurrent (principal); F15.90 Other stimulant use, unspecified, uncomplicated; I10 Essential (primary) hypertension; Z53.09 Procedure and treatment not carried out because of other contraindication
CPT/HCPCS: 36415; 80306; 85027; 87081

== ENCOUNTER 2016-09-07 15:17 | Emergency (ER) | payer OTHER ==
[~2016-09-07] VITALS: Ht 182.9 cm; Wt 77.1 kg
[2016-09-07] MEDS ORDERED: KETOROLAC 60 MG/2 ML VIAL IM STA (16:50)
[2016-09-07] MEDS ORDERED: ORPHENADRINE 60 MG/2 ML (NORFLEX) AMP IM STA (16:50)
--- NOTE | 2016-09-07 17:27 | ED Back Pain ---
General Chief Complaint: Hip/Pelvic Problems Stated Complaint: HIP PAIN Nursing Triage Note: ARRIVED VIA AMB TO ROOM 07. PT YELLING "YOU GOTTA DO SOMETHING FOR MY FUCKING PAIN BECAUSE EVERY TIME IM HERE YOU FUCKING DO NOTHING." PT WITH COMPLAINTS OF CHRONIC SUPRAPUBIC PAIN THAT RADIATES TO AND DOWN HIS RIGHT HIM. PT STATES HE HAS BEEN TAKING HYDROCODONE FOR THE PAIN.. Nursing Sepsis Screen: No Definite Risk Source of Information: Patient, Spouse Exam Limitations: Other (poor historian) History of Present Illness Time Seen by Provider: 16:30 Initial Comments patient heard from the nurses station screaming obscenities. Patient yelling "FUCKING DO SOMETHING! NOBODY FUCKING DOES ANYTHING! I SHOULD GO SOMEWHERE THEY WILL FUCKING HELP ME!" I advised the patient that the ED is very busy and that we will not tolerate cussing, screaming, and yelling at the staff. I advised patient that if he continues to behave in this manor, PD will be called. Patient immediately begins crying without tears. presents to the room and states she has been trying to keep the patient calm. Patient was scheduled for inguinal hernia repair by Dr. Espinoza August 09, but was found to be positive for amphetamines, cannabinoids, and methamphetamines. Surgery was canceled by anesthesia (patient reports he doesn't know why they canceled the surgery because he had not used methamphetamines for one week prior to the surgery). Patient has had previous neck surgery by Dr. Valdez. Has had this pain for greater than one year, but denies seeing Dr. Valdez for this. States he has seen Dr. Bernstein, "but she says she doesn't know what to do about it." Patient states pain begins in the right low back and radiates down the right buttock/lateral hip/lateral thigh. States radiates to the level of the knee. Patient is rolling around on the bed. Refuses to lie still. Patient also starts twisting from right to left and states "If I could just get my back to pop!" Patient noted to kick legs into the air without difficulty. Patient can be crying and then immediately stop to speak normally. Denies bowel or bladder incontinence. Patient states he has been taking hydrocodone at home, but has not been prescribed this medicine. Location: Paraspinous Muscles (rt) Timing/Duration: Other (chronic pain, worse over the last 1-2 wks.) Pain/Injury Location: Back Radiation: Buttocks (rt), Upper Legs (rt) Method of Injury: Unknown (denies known injury.) Modifying Factors: Worse With Movement (patient reports worse with movement, but is noted to be rolling around on the bed and swinging/kicking legs into the air.) Associated Symptoms: muscle spasms, No fever, No weakness, No numbness in legs/ feet, No tingling in legs/feet, No sensory/motor loss, lower back pain, No loss of bladder control, No loss of bowel control Allergies and Home Medications Allergies Coded Allergies: levofloxacin (Verified Allergy, Mild, 08/06/16) Home Medications Cyclobenzaprine HCl 10 Mg Tablet, 10 MG PO Q8H PRN for SPASMS, #14 Ref 0 Prescribed by: VESNA POWELL on 09/07/161923 Famotidine 20 Mg Tablet, 20 MG PO BID, #20 Ref 0 Prescribed by: VESNA POWELL on 09/07/161923 Naproxen 500 Mg Tablet, 500 MG PO BID, #20 Ref 0 Prescribed by: VESNA POWELL on 09/07/161923 Prednisone 20 Mg Tab, 40 MG PO DAILY, #10 Ref 0 Prescribed by: VESNA POWELL on 09/07/161923 Constitutional: No chills, No fever, No malaise, No weakness Respiratory: no symptoms reported Cardiovascular: no symptoms reported Gastrointestinal: No abdominal pain, constipation (chronic constipation ( states no different than usual constipation)), No diarrhea, No nausea, No vomiting Genitourinary: No dysuria, No frequency, No hematuria, No pain Musculoskeletal: see HPI Skin: no symptoms reported Psychiatric/Neurological: Denies Numbness, Denies Paresthesia, Denies Tingling , Denies Weakness All Other Systems Reviewed Negative Unless Noted: Yes (Negative excepted noted.) Past Rcsqnzw-Gbvktu-Wgplfy Hx Patient Social History Alcohol Use: Denies Use Recreational Drug Use: Yes Drug of Choice: POT Smoking Status: Current Everyday Smoker Type Used: Cigarettes Former Smoker/When Quit: Mar 03, 1997 Recent Foreign Travel: No Contact w/Someone Who Travel: No Recent Infectious Disease Expo: No Recent Hopitalizations: No Immunizations Up To Date Tetanus Booster (TDap): Unknown Seasonal Allergies Seasonal Allergies: No Surgeries HX Surgeries: Yes (BACK SURGERY, STABBED IN LEFT KNEE, STABBED IN LEFT BUTTOCK) Surgeries: Gallbladder Respiratory Hx Respiratory Disorders: No Respiratory Disorders: Asthma Cardiovascular Hx Cardiac Disorders: Yes ( REPORTS HX HTN) Cardiac Disorders: Hypertension Neurological Hx Neurological Disorders: Yes (APHASIA HX, narcolepsy) Neurological Disorders: TIA Reproductive System Hx Reproductive Disorders: No Sexually Transmitted Disease: No HIV/AIDS: No Genitourinary Hx Genitourinary Disorders: Yes Genitourinary Disorders: Renal Failure Gastrointestinal Hx Gastrointestinal Disorders: Yes (HERNIA) Gastrointestinal Disorders: Gastrointestinal Bleed, Hepatitis Musculoskeletal Hx Musculoskeletal Disorders: Yes (REMOVED A DISC. 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 Refuses to lie still. Rolling around in the bed. Yelling and screaming obscenities. Swinging and kicking legs. ) Cardiovascular: Regular Rate, Rhythm, No Edema, No Murmur, Normal Peripheral Pulses Respiratory: Lungs Clear, Normal Breath Sounds, No Respiratory Distress Gastrointestinal: Normal Bowel Sounds, Non Tender, Soft, No Distended Back: Normal Inspection, No Vertebral Tenderness, No Decreased Range of Motion , No Muscle Spasm Extremity: Normal Capillary Refill, Normal Range of Motion, No Pedal Edema, No Swelling, Other (numerous scabs noted of the upper and lower extremities in various stages of healing. Right lateral hip and lateral thigh tender to palpation. 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 Refuses to lie still. Rolling around in the bed. Yelling and screaming obscenities. Swinging and kicking legs. ) Skin: Normal Color, Warm/Dry, No Ecchymosis, Other (numerous scabs of the upper and lower extremities in various stages of healing) Progress/Results/Core Measures Results/Orders My Orders Orders - VESNA POWELL Ct Lumbar Spine Wo (09/07/16 16:50) Ketorolac Injection (Toradol Injection) (09/07/16 16:50) Orphenadrine Injection (Norflex Injectio (09/07/16 16:50) Vital Signs/I&O Vital Sign - Last 12Hours 09/07/16 09/07/16 15:35 19:30 Temp 97.5 97.5 Pulse 95 95 Resp 18 20 B/P (MAP) 119/ Pulse Ox 98 95 O2 Delivery Room Air O2 Flow Rate 168.00 Diagnostic Imaging Diagonstic Imaging: CT Plain Films/CT/US/NM/MRI: other (lumbar spine) Comments The previous CT lumbar spine exam performed on 10/07/11 noted degenerative disc and bony disease at L5-S1 with bilateral moderate to severe neural foraminal narrowing. On this exam, the degenerative changes are again evident and do not seem to have progressed significantly since the prior exam. There also appears to be trefoil stenosis at L4-L5. This may be somewhat worse than noted on the prior exam. There is narrowing of the neural foramen bilaterally at this level also, particularly on the left. There may be borderline central stenosis at L3- L4. This does not seem to have progressed since the prior exam. The remainder of the lumbar spine is unremarkable for spinal stenosis or nerve root encroachment. There is no fracture or acute bony abnormality identified. There is no sign of a paraspinal mass. IMPRESSION: 1. There is no evidence for an acute bony abnormality. 2. The degenerative disc and bony disease at L5-S1 seen previously does not appear to have changed significantly. However, there may be greater narrowing of the thecal sac at L4-L5 due to trefoil stenosis. There is also neural foraminal narrowing at this level, particularly on the left. If further evaluation is desired, then MRI would be recommended. Dictated on workstation # [id number] Reviewed: Reviewed by Me (radiology report reviewed by me) Departure Communication Progress Notes Diagnostic findings discussed with the patient. Patient reports improvement with Toradol and Norflex. Patient is able to move without difficulty. Proceed with discharge to home. Patient instructed to follow-up with Dr. Dawkins as an outpatient for possibly scheduling an MRI of the lumbar spine. All return precautions were discussed with the patient as described in the discharge instructions of this report. Patient voices understanding and agrees with the treatment plan. Patient voices appreciation and is very thankful for care given. Patient ambulated from the emergency department without difficulty. After patient left the ED, final operations technician reports patient left a note in the room thanking this examiner for my time, patience, and thoroughness. Impression Impression: Primary Impression: Lumbar radiculopathy Disposition: HOME, SELF-CARE Condition: Improved Departure-Patient Inst. Decision time for Depature: 19:22 Referrals: LORENZO DAWKINS MD (PCP/Family) Primary Care Physician FARNAZ VALDEZ DO Patient Instructions: Radiculopathy (DC) Add. Discharge Instructions: All discharge instructions reviewed with patient and/or family. Voiced understanding. Medications as instructed. Tylenol Extra Strength [id number]-[id number] as directed for pain. No heavy lifting, pushing, pulling, twisting, bending, climbing 7 days. Heating pads or packs as needed for pain. Follow-up with your primary care physician for recheck and possible need for outpatient MRI of the low back. Return to the emergency department for worsened symptoms, bowel incontinence, bladder incontinence, numbness of the genitals, or any other concerns. Scripts Famotidine (Pepcid) 20 Mg Tablet 20 MG PO BID, #20 TAB 0 Refills Prov: VESNA POWELL 09/07/16 Naproxen (Naprosyn) 500 Mg Tablet 500 MG PO BID, #20 TAB 0 Refills Prov: VESNA POWELL 09/07/16 Cyclobenzaprine HCl (Cyclobenzaprine HCl) 10 Mg Tablet 10 MG PO Q8H Y for SPASMS, #14 TAB 0 Refills Prov: VESNA POWELL 09/07/16 Prednisone (Prednisone) 20 Mg Tab 40 MG PO DAILY, #10 TAB 0 Refills Prov: VESNA POWELL 09/07/16 VESNA POWELL Sep 07, 2016 17:27
--- NOTE | 2016-09-07 18:13 | Diagnostic Imaging Report ---
PROCEDURE: CT lumbar spine without contrast. TECHNIQUE: Multiple contiguous axial images were obtained through the lumbar spine without the use of intravenous contrast. Sagittal and coronal reformations were then performed. INDICATION: Back pain. The previous CT lumbar spine exam performed on 10/07/11 noted degenerative disc and bony disease at L5-S1 with bilateral moderate to severe neural foraminal narrowing. On this exam, the degenerative changes are again evident and do not seem to have progressed significantly since the prior exam. There also appears to be trefoil stenosis at L4-L5. This may be somewhat worse than noted on the prior exam. There is narrowing of the neural foramen bilaterally at this level also, particularly on the left. There may be borderline central stenosis at L3-L4. This does not seem to have progressed since the prior exam. The remainder of the lumbar spine is unremarkable for spinal stenosis or nerve root encroachment. There is no fracture or acute bony abnormality identified. There is no sign of a paraspinal mass. IMPRESSION: 1. There is no evidence for an acute bony abnormality. 2. The degenerative disc and bony disease at L5-S1 seen previously does not appear to have changed significantly. However, there may be greater narrowing of the thecal sac at L4-L5 due to trefoil stenosis. There is also neural foraminal narrowing at this level, particularly on the left. If further evaluation is desired, then MRI would be recommended. Dictated by: Dictated on workstation # [id number]
[2016-09-07] MEDS ORDERED: FAMO-119 PO (19:24)
[2016-09-07] MEDS ORDERED: CYCL10TA9 PO (19:24)
[2016-09-07] MEDS ORDERED: NAPR500T PO (19:24)
[2016-09-07] MEDS ORDERED: PRD20T PO (19:24)
[2016-09-07 19:30] VITALS: BP 168/119
--- OUTSIDE RECORDS SUMMARY | 2016-09-10 09:43 | XMS REPORT | Continuity of Care Document ---
Author Author Pending Sale To [facility] Address Unknown Phone Unavailable Allergies Active Description Code Type Severity Reaction Onset Reported/Identified Relationship to Patient Clinical Status Yes levofloxacin [id number] Drug Allergy Mild N/A 2016 Medications Problems Date Dx Coded Attending Type [...] PAIN, RIGHT LOWER QUADRANT 09/08/2014 LAURA LUNDBERG CLINICAL RESEARCHER Ot 604.99 ORCHITIS/EPIDIDYMIT NEC 09/08/2014 LAURA LUNDBERG CLINICAL RESEARCHER Ot 608.86 EDEMA, MALE GENITAL ORGN 09/09/2014 LAURA LUNDBERG CLINICAL RESEARCHER Ot 604.90 ORCHITIS/EPIDIDYMIT NOS 09/09/2014 LAURA LUNDBERG CLINICAL RESEARCHER Ot 724.1 PAIN IN THORACIC SPINE 09/09/2014 LAURA LUNDBERG CLINICAL RESEARCHER Ot 724.5 BACKACHE NOS 09/20/2014 VESNA BATRES Ot 599.0 URIN TRACT INFECTION NOS 09/20/2014 EVSNA BATRES Ot 789.03 ABDOMINAL PAIN, RIGHT LOWER [...] 03/17/2015 PARESH PUTNAM, GYPSY Uriostegui Ot Y92.[address] [facility] NON-INSTITUT ( PRIVATE 03/17/2015 GYPSY YODER [...] Ot Z87.891 PERSONAL HISTORY OF NICOTINE DEPENDENCE 04/29/2016 Ot 070.54 CHRONIC HEPATITIS C W/O HEPATIC COMA 04/29/2016 Ot 280.9 IRON DEFIC ANEMIA NOS 04/29/2016 Ot 305.90 DRUG ABUSE NEC-UNSPEC 04/29/2016 Ot 578.9 GASTROINTEST HEMORR NOS 04/29/2016 Ot V15.82 HISTORY OF TOBACCO USE 04/29/2016 LAURA LUNDBERG CLINICAL RESEARCHER Ot M23.92 UNSPECIFIED INTERNAL DERANGEMENT OF LEFT 04/29/2016 LAURA LUNDBERG CLINICAL RESEARCHER Ot M25.462 EFFUSION, LEFT KNEE 04/29/2016 LAURA LUNDBERG CLINICAL RESEARCHER Ot M25.562 PAIN IN LEFT KNEE 04/29/2016 LAURA LUNDBERG CLINICAL RESEARCHER Ot Z79.82 PRISON (CURRENT) USE OF ASPIRIN 04/29/2016 LAURA LUNDBERG CLINICAL RESEARCHER Ot Z79.899 OTHER PRISON (CURRENT) DRUG THERAPY 05/01/2016 LORENZO DAWKINS MD Ot R10.31 RIGHT LOWER QUADRANT PAIN 05/03/2016 LAURA LUNDBERG CLINICAL RESEARCHER Ot M23.92 UNSPECIFIED INTERNAL DERANGEMENT OF LEFT 05/03/2016 LAURA LUNDBERG CLINICAL RESEARCHER Ot M25.462 EFFUSION, LEFT KNEE 05/03/2016 LAURA LUNDBERG CLINICAL RESEARCHER Ot M25.562 PAIN IN LEFT KNEE 05/03/2016 LAURA LUNDBERG CLINICAL RESEARCHER Ot Z79.82 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 OF ASPIRIN 05/03/2016 LAURA LUNDBERG CLINICAL RESEARCHER Ot Z79.899 OTHER CRYOGENIC TRANSPORT DRIVER (CURRENT) DRUG THERAPY 05/06/2016 LORENZO DAWKINS MD Ot R10.31 RIGHT LOWER QUADRANT PAIN 06/28/2016 LORENZO DAWKINS MD Ot R10.31 RIGHT LOWER QUADRANT PAIN 06/28/2016 Ot 070.54 CHRONIC HEPATITIS C W/O HEPATIC COMA 06/28/2016 Ot 280.9 IRON DEFIC ANEMIA NOS 06/28/2016 Ot 305.90 DRUG ABUSE NEC-UNSPEC 06/28/2016 Ot 578.9 GASTROINTEST HEMORR NOS 06/28/2016 Ot V15.82 HISTORY OF TOBACCO USE 06/28/2016 LORENZO DAWKINS MD Ot R10.31 RIGHT LOWER QUADRANT PAIN 06/29/2016 LORENZO DAWKINS MD Ot R10.31 RIGHT LOWER QUADRANT PAIN 07/05/2016 LORENZO DAWKINS MD Ot R10.31 RIGHT LOWER QUADRANT PAIN 07/05/2016 Ot 070.54 CHRONIC HEPATITIS C W/O HEPATIC COMA 07/05/2016 Ot 280.9 IRON DEFIC ANEMIA NOS 07/05/2016 Ot 305.90 DRUG ABUSE NEC-UNSPEC 07/05/2016 Ot 578.9 GASTROINTEST HEMORR NOS 07/05/2016 Ot V15.82 HISTORY OF TOBACCO USE 07/05/2016 LORENZO DAWKINS MD Ot R10.31 RIGHT LOWER QUADRANT PAIN 07/06/2016 LORENZO DAWKINS MD Ot R10.31 RIGHT LOWER QUADRANT PAIN 07/06/2016 LAURA LUNDBERG CLINICAL RESEARCHER Ot K59.00 CONSTIPATION, UNSPECIFIED 07/06/2016 LAURA LUNDBERG CLINICAL RESEARCHER Ot M54.5 LOW BACK PAIN 07/06/2016 LAURA LUNDBERG CLINICAL RESEARCHER Ot S39.012A STRAIN OF MUSCLE, FASCIA AND TENDON OF L 07/06/2016 LAURA LUNDBERG APRN Ot X50.9XXA OTHER AND UNSPECIFIED OVREXRTN OR STRNOU 07/06/2016 LAURA LUNDBERG APRN Ot Y92.009 [facility] [address] IN [facility] PRIVATE 07/06/2016 LAURA LUNDBERG CLINICAL RESEARCHER Ot Y99.8 OTHER EXTERNAL CAUSE STATUS 07/06/2016 LAURA LUNDBERG CLINICAL RESEARCHER Ot Z79.82 PRISON (CURRENT) USE OF ASPIRIN 07/06/2016 LAURA LUNDBERG CLINICAL RESEARCHER Ot Z79.899 OTHER CRYOGENIC TRANSPORT DRIVER (CURRENT) DRUG THERAPY 07/06/2016 LORENZO DAWKINS MD Ot R10.31 RIGHT LOWER QUADRANT PAIN 07/24/2016 LORENZO DAWKINS MD Ot R10.31 RIGHT LOWER QUADRANT PAIN 07/24/2016 VESNA BATRES Ot K40.20 BI INGUINAL HERNIA, W/O OBST OR GANGRENE 07/24/2016 VESNA BATRES L Ot R10.31 RIGHT LOWER QUADRANT PAIN 07/24/2016 LORENZO DAWKINS MD R Ot R10.31 RIGHT LOWER QUADRANT PAIN 07/24/2016 LORENZO DAWKINS MD Ot R10.31 RIGHT LOWER QUADRANT PAIN 07/26/2016 VESNA BATRES Ot K40.20 BI INGUINAL HERNIA, W/O OBST OR GANGRENE 07/26/2016 VESNA BATRES L Ot R10.31 RIGHT LOWER QUADRANT PAIN 08/07/2016 LORENZO DAWKINS MD Ot R10.31 RIGHT LOWER QUADRANT PAIN 08/08/2016 VESNA BATRES Ot K40.20 BI INGUINAL HERNIA, W/O OBST OR GANGRENE 08/08/2016 VESNA BATRES Ot R10.31 RIGHT LOWER QUADRANT PAIN 08/08/2016 SIERRA PUTNAM, NAZ Beal Ot K40.90 UNIL INGUINAL HERNIA, W/O OBST OR GANGR , 08/08/2016 SIERRA PUTNAM, NAZ Beal Ot Z01.818 ENCOUNTER FOR OTHER PREPROCEDURAL EXAMIN 08/09/2016 SIERRA PUTNAM, NAZ Beal Ot F15.90 OTHER STIMULANT USE, UNSPECIFIED, UNCOMP 08/09/2016 SIERRA PUTNAM, NAZ Beal Ot I10 ESSENTIAL (PRIMARY) HYPERTENSION 08/09/2016 SIERRA PUTNAM, NAZ Beal Ot K40.90 UNIL INGUINAL HERNIA, W/O OBST OR GANGR , 08/09/2016 SIERRA PUTNAM, NAZ Beal Ot Z53.09 PROC/TRTMT NOT CARRIED OUT BECAUSE OF CO 08/09/2016 Ot 070.54 CHRONIC HEPATITIS C W/O HEPATIC COMA 08/09/2016 Ot 280.9 IRON DEFIC ANEMIA NOS 08/09/2016 Ot 305.90 DRUG ABUSE NEC-UNSPEC 08/09/2016 Ot 578.9 GASTROINTEST HEMORR NOS 08/09/2016 Ot V15.82 HISTORY OF TOBACCO USE 08/09/2016 LORENZO DAWKINS MD Ot R10.31 RIGHT LOWER QUADRANT PAIN 08/12/2016 NAZ ESQUIVEL MD Ot K40.90 UNIL INGUINAL HERNIA, W/O OBST OR GANGR , 08/12/2016 NAZ ESQUIVEL MD Ot Z01.818 ENCOUNTER FOR OTHER PREPROCEDURAL EXAMIN 09/07/2016 Ot 070.54 CHRONIC HEPATITIS C W/O HEPATIC COMA 09/07/2016 Ot 280.9 IRON DEFIC ANEMIA NOS 09/07/2016 Ot 305.90 DRUG ABUSE NEC-UNSPEC 09/07/2016 Ot 578.9 GASTROINTEST HEMORR NOS 09/07/2016 Ot V15.82 HISTORY OF TOBACCO USE 09/07/2016 MARIZA PUTNAM, LORENZO Gomez Ot R10.31 RIGHT LOWER QUADRANT PAIN Procedures Code Description Performed By Performed On 45.16 ESOPHAGOGASTRODUODENOSCOPY [EGD] W/CLOSE 05/02/2011 45.23 COLONOSCOPY 05/01 45.23 COLONOSCOPY 09/11 Results Test Result Range Body fluid cell [...] type by light microscopy NOT SEEN NRG Gram stain microscopy - 04/29/16 17:58 GRAM STAIN RESULT NO BACTERIA OBSERVED NRG Bacterial body fluid culture - 04/29/16 17:58 Bacterial body fluid culture NG NRG Urine drug screening test - 08/09/16 06:03 Urine phencyclidine detection by screening method NEGATIVE NEGATIVE Urine benzodiazepines detection by screening method NEGATIVE NEGATIVE Urine cocaine detection NEGATIVE NEGATIVE Urine amphetamines detection by screening method POSITIVE NEGATIVE Urine methamphetamine detection by screening method POSITIVE NEGATIVE Urine cannabinoids detection by screening method POSITIVE NEGATIVE Urine opiates detection by screening method NEGATIVE NEGATIVE Urine barbiturates detection NEGATIVE NEGATIVE Screening urine tricyclic antidepressants detection NEGATIVE NEGATIVE Urine methadone detection by screening method NEGATIVE NEGATIVE Urine oxycodone detection NEGATIVE NEGATIVE Urine propoxyphene detection NEGATIVE NEGATIVE Methicillin resistant Staphylococcus aureus (MRSA) screening culture - 06:15 Methicillin resistant Staphylococcus aureus (MRSA) screening culture NEG NRG Encounters ACCT No. Visit Date/Time Discharge Status Pt. Type Provider Facility Loc./Unit Complaint [id number] 03/10/2014 15:52:00 03/10/2014 23: 59:59 [facility] Outpatient RUFINO COELHO DDS [id number] 07/27/2008 15:40:00 07/27/2008 23: 59:59 [facility] Outpatient WILLIS BOWDEN
[2016-10-09] MEDS ORDERED: NAPR500T4 PO (17:49)
== END 2016-09-07 19:30 | disposition home or self-care (01) ==
LOC: EDUNIT# 15:17 → ER 15:18
DX: I10 Essential (primary) hypertension; M54.16 Radiculopathy, lumbar region; F31.9 Bipolar disorder, unspecified; F12.10 Cannabis abuse, uncomplicated; J45.909 Unspecified asthma, uncomplicated; M19.90 Unspecified osteoarthritis, unspecified site; F17.210 Nicotine dependence, cigarettes, uncomplicated; Z86.73 Personal history of transient ischemic attack (TIA), and cerebral infarction without residual deficits
CPT/HCPCS: 72131; 96372; 99284

== ENCOUNTER 2016-10-09 16:08 | Emergency (ER) | payer OTHER ==
[~2016-10-09] VITALS: Ht 182.9 cm; Wt 77.2 kg
[~2016-10-09 16:08] MED LIST changes: +FAMO-119 PO
--- NOTE | 2016-10-09 17:11 | ED General ---
General Chief Complaint: General Problems/Pain Stated Complaint: NECK PAIN,CHEST TIGHTNESS Nursing Triage Note: PT AMBULATED TO ROOM. PT COMPLAINS OF CHEST TIGHTNESS SINCE YESTERDAY, AND STATES HE HIT HIS HEAD ON THE WALL LAST WEEK AND HAS HAD HURT NECK AND SHOULDERS SINCE. Nursing Sepsis Screen: No Definite Risk Source of Information: Patient Exam Limitations: No Limitations History of Present Illness Time Seen by Provider: 17:10 Initial Comments To ER with chest tightness since yesterday morning. He describes this as a tight band around his central chest and again, constant since yesterday morning. He states that one week ago he struck the center of his forehead on the edge of a door frame which caused him to extend his neck and he has since had severe pain in his neck and both shoulders. He reports a history of cervical fusion 1 year ago. Timing/Duration: 2-3 Days Severity: Moderate Allergies and Home Medications Allergies Coded Allergies: levofloxacin (Verified Allergy, Mild, 08/06/16) Home Medications Cyclobenzaprine HCl 10 Mg Tablet, 10 MG PO Q8H PRN for SPASMS, #14 Ref 0 Prescribed by: VESNA POWELL on 09/07/161923 Famotidine 20 Mg Tablet, 20 MG PO BID, #20 Ref 0 Prescribed by: VESNA POWELL on 09/07/161923 Naproxen 500 Mg Tablet, 500 MG PO BID, #20 Ref 0 Prescribed by: VESNA POWELL on 09/07/161923 Prednisone 20 Mg Tab, 40 MG PO DAILY, #10 Ref 0 Prescribed by: VESNA POWELL on 09/07/161923 Constitutional: see HPI EENTM: see HPI Respiratory: no symptoms reported Cardiovascular: no symptoms reported Genitourinary: no symptoms reported Musculoskeletal: see HPI, muscle stiffness Skin: no symptoms reported Psychiatric/Neurological: No Symptoms Reported Past Ysykcsf-Ceegcj-Jhvfnh Hx Patient Social History Alcohol Use: Denies Use Recreational Drug Use: Yes (marijuana) Drug of Choice: POT Smoking Status: Former Smoker Type Used: Cigarettes Former Smoker/When Quit: Mar 03, 1997 2nd Hand Smoke Exposure: No Recent Foreign Travel: No Contact w/Someone Who Travel: No Recent Infectious Disease Expo: No Recent Hopitalizations: No Immunizations Up To Date Tetanus Booster (TDap): Unknown Seasonal Allergies Seasonal Allergies: No Surgeries HX Surgeries: Yes (BACK SURGERY, STABBED IN LEFT KNEE, STABBED IN LEFT BUTTOCK) Surgeries: Gallbladder Respiratory Hx Respiratory Disorders: No Respiratory Disorders: Asthma Cardiovascular Hx Cardiac Disorders: Yes ( REPORTS HX HTN) Cardiac Disorders: Hypertension Neurological Hx Neurological Disorders: Yes (APHASIA HX, narcolepsy) Neurological Disorders: TIA Reproductive System Hx Reproductive Disorders: No Sexually Transmitted Disease: No HIV/AIDS: No Genitourinary Hx Genitourinary Disorders: Yes Genitourinary Disorders: Renal Failure Gastrointestinal Hx Gastrointestinal Disorders: Yes (HERNIA) Gastrointestinal Disorders: Gastrointestinal Bleed, Hepatitis Musculoskeletal Hx Musculoskeletal Disorders: Yes (REMOVED A DISC. chronic left foot pain) Musculoskeletal Disorders: Degenerate Disk Disease, Arthritis, Back Injury, Chronic Back Pain Endocrine Hx Endocrine Disorders: No HEENT HX ENT Disorders: No Loss of Vision: Denies Hearing Impairment: Denies Cancer Hx Cancer: No Psychosocial Hx Psychiatric Problems: No (INFORMATION OBTAINED FROM OLD RECORDS) Behavioral Health Disorders: Bipolar, Personality Disorder Integumentary HX Skin/Integumentary Disorder: No Blood Transfusions Hx Blood Disorders: Yes (unknown bleeding disorder (seeing paralegal specialist for it) , anemia, transfusion) Adverse Reaction to a Blood Tr: No Family Medical History Significant Family History: No Pertinent Family Hx Physical Exam Vital Signs Vital Sign - Last 12Hours 10/09/16 16:18 Temp 98.2 Pulse 119 Resp 20 B/P (MAP) 135/85 Pulse Ox 100 O2 Delivery Room Air Capillary Refill : Less Than 3 Seconds General Appearance: No Apparent Distress, WD/WN Eyes: Bilateral Eye EOMI, Bilateral Eye Normal Inspection, Bilateral Eye PERRL HEENT: PERRL/EOMI, TMs Normal Neck: Full Range of Motion, Normal Inspection Respiratory: Normal Breath Sounds, No Accessory Muscle Use, No Respiratory Distress Cardiovascular: Regular Rate, Rhythm, Normal Peripheral Pulses Gastrointestinal: Non Tender, Soft Extremity: Normal Capillary Refill, Normal Inspection Neurologic/Psychiatric: Alert, Oriented x3 Skin: Normal Color, Warm/Dry Progress/Results/Core Measures Results/Orders Lab Results Laboratory Tests Test 10/09/16 17:15 10/09/16 17:44 Range/Units White Blood Count 4.8 4.3-11.0 10^3/uL Red Blood Count 5.06 4.35-5.85 10^6/uL Hemoglobin 14.5 13.3-17.7 G/DL Hematocrit 43 40-54 % Mean Corpuscular Volume 84 80-99 FL Mean Corpuscular Hemoglobin 29 25-34 PG Mean Corpuscular Hemoglobin Concent 34 32-36 G/DL Red Cell Distribution Width 13.8 10.0-14.5 % Platelet Count 204 130-400 10^3/uL Mean Platelet Volume 9.6 7.4-10.4 FL Neutrophils (%) (Auto) 37 L 42-75 % Lymphocytes (%) (Auto) 39 12-44 % Monocytes (%) (Auto) 18 H 0-12 % Eosinophils (%) (Auto) 6 0-10 % Basophils (%) (Auto) 0 0-10 % Neutrophils # (Auto) 1.8 1.8-7.8 X 10^3 Lymphocytes # (Auto) 1.9 1.0-4.0 X 10^3 Monocytes # (Auto) 0.9 0.0-1.0 X 10^3 Eosinophils # (Auto) 0.3 0.0-0.3 10^3/uL Basophils # (Auto) 0.0 0.0-0.1 10^3/uL Sodium Level 136 135-145 MMOL/L Potassium Level 4.6 3.6-5.0 MMOL/L Chloride Level 103 98-107 MMOL/L Carbon Dioxide Level 25 21-32 MMOL/L Anion Gap 8 5-14 MMOL/L Blood Urea Nitrogen 16 7-18 MG/DL Creatinine 0.83 0.60-1.30 MG/DL Estimat Glomerular Filtration Rate > 60 BUN/Creatinine Ratio 19 Glucose Level 78 70-105 MG/DL Calcium Level 9.1 8.5-10.1 MG/DL Total Bilirubin 0.3 0.1-1.0 MG/DL Aspartate Amino Transf (AST/SGOT) 30 5-34 U/L Alanine Aminotransferase (ALT/SGPT) 48 0-55 U/L Alkaline Phosphatase 105 40-136 U/L Troponin I < 0.30 <0.30 NG/ML Total Protein 7.6 6.4-8.2 GM/DL Albumin 3.9 3.2-4.5 GM/DL My Orders Orders - LAURA LUNDBREG APRN Ekg Tracing (10/09/16 16:57) Troponin I (10/09/16 16:57) Cbc With Automated Diff (10/09/16 16:57) Ua Culture If Indicated (10/09/16 16:57) Drug Screen Stat (Urine) (10/09/16 16:57) Comprehensive Metabolic Panel (10/09/16 16:57) Chest Pa/Lat (2 View) (10/09/16 16:57) Ketorolac Injection (Toradol Injection) (10/09/16 17:15) Orphenadrine Injection (Norflex Injectio (10/09/16 17:15) Cervical Spine 3 Views Or Less (10/09/16 17:12) Medications Given in ED Current Medications Medications Dose Ordered Sig/Venkat Route Start Time Stop Time Status Last Admin Dose Admin Ketorolac Tromethamine 60 mg ONCE ONCE IM 10/09/16 17:15 10/09/16 17:16 DC 10/09/16 17:18 60 MG Orphenadrine Citrate 60 mg ONCE ONCE IM 10/09/16 17:15 10/09/16 17:16 DC 10/09/16 17:16 60 MG Vital Signs/I&O Vital Sign - Last 12Hours 10/09/16 16:18 Temp 98.2 Pulse 119 Resp 20 B/P (MAP) 135/85 Pulse Ox 100 O2 Delivery Room Air Blood Pressure Mean: 102 Departure Impression Impression: Primary Impression: Cervical radiculopathy Disposition: 01 HOME, SELF-CARE Condition: Stable Departure-Patient Inst. Decision time for Depature: 17:48 Referrals: LORENZO DAWKINS MD (PCP/Family) Primary Care Physician Patient Instructions: Radiculopathy Add. Discharge Instructions: 1. REturn to ER for any concerns 2. See your doctor later this week All discharge instructions reviewed with patient and/or family. Voiced understanding. Scripts Cyclobenzaprine HCl (Cyclobenzaprine HCl) 5 Mg Tablet 5 MG PO TID Y for PAIN-MODERATE TO SEVERE, #14 TAB Prov: LAURA LUNDBERG BRANDING MACHINE OPERATOR 10/09/16 Naproxen (Naproxen) 500 Mg Tablet 500 MG PO BID Y for PAIN-SEVERE, #30 TAB Prov: LAURA LUNDBERG BRANDING MACHINE OPERATOR 10/09/16 LAURA LUNDBERG BRANDING MACHINE OPERATOR Oct 09, 2016 17:11
[2016-10-09] MEDS ORDERED: KETOROLAC 60 MG/2 ML VIAL IM ONE (17:15)
[2016-10-09] MEDS ORDERED: ORPHENADRINE 60 MG/2 ML (NORFLEX) AMP IM ONE (17:15)
[2016-10-09 17:21] LABS: BASOPHILS % (AUTO) 0 % (0-10); EOSINOPHILS # (AUTO) 0.3 10^3/uL (0.0-0.3); EOSINOPHILS % (AUTO) 6 % (0-10); LYMPHOCYTES # (AUTO) 1.9 X 10^3 (1.0-4.0); LYMPHOCYTES % (AUTO) 39 % (12-44); MEAN CORPUSCULAR HEMOGLOBIN 29 PG (25-34); MEAN CORPUSCULAR HGB CONC 34 G/DL (32-36); MEAN CORPUSCULAR VOLUME 84 FL (80-99); MEAN PLATELET VOLUME 9.6 FL (7.4-10.4); MONOCYTES # (AUTO) 0.9 X 10^3 (0.0-1.0); MONOCYTES % (AUTO) 18 % (0-12); NEUTROPHILS # (AUTO) 1.8 X 10^3 (1.8-7.8); NEUTROPHILS % (AUTO) 37 % (42-75); PLATELET COUNT 204 10^3/uL (130-400); RED BLOOD COUNT 5.06 10^6/uL (4.35-5.85); RED CELL DISTRIBUTION WIDTH 13.8 % (10.0-14.5); WHITE BLOOD COUNT 4.8 10^3/uL (4.3-11.0)
[2016-10-09 17:40] LABS: ALANINE AMINOTRANSFERASE 48 U/L (0-55); ALBUMIN 3.9 GM/DL (3.2-4.5); ANION GAP 8 MMOL/L (5-14); ASPARTATE AMINO TRANSFERASE 30 U/L (5-34); BILIRUBIN,TOTAL 0.3 MG/DL (0.1-1.0); BLOOD UREA NITROGEN 16 MG/DL (7-18); BUN/CREATININE RATIO 19; CALCIUM 9.1 MG/DL (8.5-10.1); CARBON DIOXIDE 25 MMOL/L (21-32); CHLORIDE 103 MMOL/L (98-107); CREATININE SERUM 0.83 MG/DL (0.60-1.30); GFR ESTIMATED > 60; GLUCOSE 78 MG/DL (70-105); POTASSIUM 4.6 MMOL/L (3.6-5.0); SODIUM 136 MMOL/L (135-145); TOTAL PROTEIN 7.6 GM/DL (6.4-8.2)
--- NOTE | 2016-10-09 17:40 | Diagnostic Imaging Report ---
CLINICAL INDICATION: Patient with anterior chest pain. EXAM: Chest x-ray PA and lateral views. COMPARISONS: Chest x-ray dated 03/17/2012. FINDINGS: Lungs/pleura: Lungs are clear. There is no pneumothorax. There is no pleural effusion. Mediastinum: Unremarkable. Pulmonary vasculature: Unremarkable. Heart: Unremarkable. Bones/extrathoracic soft tissue: There are moderately hypertrophic degenerative osteophytes scattered throughout the thoracic spine. Lower cervical spine anterior disc fusion hardware has been placed in the interim. Surgical clips are seen overlying the right upper quadrant which could be related to cholecystectomy changes. IMPRESSION: There is no radiographic evidence of acute cardiopulmonary process. Dictated by: Dictated on workstation # [id number]
--- NOTE | 2016-10-09 17:44 | Diagnostic Imaging Report ---
CLINICAL INDICATION: Patient with neck pain x1 week. EXAM: X-ray of the cervical spine, 3 views. COMPARISON: MRI of the cervical spine dated 11/08/2014. FINDINGS: There are interval postop changes with placement of C3-C7 anterior cervical interbody fusion. There is no gross hardware complication such as hardware fracture or osteolysis. There are surgical clips overlying the left neck region. There is mild facet arthropathy. There is no significant prevertebral soft tissue swelling. Odontoid views show no significant abnormality. IMPRESSION: 1: Interval postop changes with C3-C7 anterior cervical interbody fusion with no gross hardware complications. 2: Cervical spine degenerative disease. Dictated by: Dictated on workstation # [id number]
[2016-10-09 17:46] LABS: TROPONIN I < 0.30 NG/ML (<0.30)
[2016-10-09] MEDS ORDERED: NAPR500T3 PO (17:49)
[2016-10-09] MEDS ORDERED: CYCL5TAB PO (17:49)
[2016-10-09 17:50] LABS: BILIRUBIN,URINE NEGATIVE (NEGATIVE); KETONES,URINE NEGATIVE (NEGATIVE); LEUKOCYTE ESTERASE ,URINE NEGATIVE (NEGATIVE); NITRITE,URINE NEGATIVE (NEGATIVE); PH,URINE 7 (5-9); PROTEIN,URINE NEGATIVE (NEGATIVE); UROBILINOGEN,URINE NORMAL (NORMAL)
[2016-10-09 18:00] LABS: SQUAMOUS EPITHELIAL CELL,UR 0-2 /HPF; WBC,URINE 0-2 /HPF
[2016-10-09 18:12] VITALS: BP 135/85
== END 2016-10-09 18:12 | disposition home or self-care (01) ==
LOC: EDUNIT# 16:08 → ER 16:11
DX: M54.12 Radiculopathy, cervical region (principal); I10 Essential (primary) hypertension; J45.909 Unspecified asthma, uncomplicated; M47.9 Spondylosis, unspecified; F12.90 Cannabis use, unspecified, uncomplicated; F31.9 Bipolar disorder, unspecified; F60.9 Personality disorder, unspecified; Z98.890 Other specified postprocedural states; Z86.73 Personal history of transient ischemic attack (TIA), and cerebral infarction without residual deficits; Z87.891 Personal history of nicotine dependence
CPT/HCPCS: 36415; 71020; 72040; 80053; 80306; 81000; 84484; 85025; 93005; 96372

== ENCOUNTER → 2016-11-15 | Outpatient (CLI) | payer OTHER ==
[~2016-11-15] MED LIST changes: +NAPR500T4 PO; +ONDA4TAB11 PO
--- NOTE | 2016-11-15 15:13 | Diagnostic Imaging Report ---
PROCEDURE: MRI lumbar spine. TECHNIQUE: Multiplanar, multisequence MRI of the lumbar spine was performed without contrast. INDICATION: Abnormal CT lumbar spine with back pain. FINDINGS: Sagittal images show good alignment of vertebral bodies. Body height is well maintained. Marrow signal is normal throughout the lumbar spine. L1-L2: There is minimal disc bulge with mild posterior facet and ligamentous hypertrophy causing mild encroachment upon the lateral recesses. L2-L3: There is mild broad-based disc bulge. Moderate posterior facet and ligamentous hypertrophy present causing kguj-dx-feyvewbv encroachment upon the lateral recesses. L3-L4: There is desiccation of the disc with mild broad-based disc bulge. Moderate posterior facet and ligamentous hypertrophy present causing moderate encroachment upon the right lateral recess and neural foramen. L4-L5: There is central disc tear. Facet and ligamentous hypertrophy is present, more prominent on the right causing moderate encroachment upon the right lateral recess and nerve root sleeve with the central disc protrusion extending somewhat eccentric to the right, aggravating the encroachment. L5-S1: There is loss of disc space height. Hypertrophic lipping of the endplates with rather marked posterior facet and ligamentous hypertrophy is causing mudhgbdw-ah-tnquyj encroachment, most severe in the left lateral recess and neural foramen. The cauda equina and conus medullaris appear normal. The paraspinal soft tissues are normal. IMPRESSION: Multilevel degenerative disc and facet disease causing mnid-au-vshxjseu severe encroachment upon the lateral recesses and neural foramen. This is most severe at L4-L5. See above for detail. Dictated by: Dictated on workstation # [id number]
== END ==
LOC: RAD 14:00
PROVIDERS: ATTEND Family Medicine
DX: M51.16 Intervertebral disc disorders with radiculopathy, lumbar region (principal)
CPT/HCPCS: 72148

== ENCOUNTER 2016-12-28 17:42 | Emergency (ER) | payer SELFPAY ==
[~2016-12-28] VITALS: Ht 182.9 cm; Wt 78.5 kg
[~2016-12-28 17:42] MED LIST changes: +NAPR500T3 PO; -NAPR500T4 PO; -ONDA4TAB11 PO
--- OUTSIDE RECORDS SUMMARY | 2016-12-28 17:50 | XMS REPORT ---
Author Author LORENZO DAWKINS Organization [facility] Address [address] [place] [address] Care Team Providers Care Field Pipe Lines Supervisor Name Role Phone LORENZO DAWKINS Unavailable PROBLEMS Type Condition ICD9-CM Code [id number] Code Onset Dates Condition Status SNOMED Code Problem Substance abuse F19.10 Active 56084011 Problem Spinal stenosis of lumbar region M48.06 Active 17353998 Problem Moderate major depression F32.1 Active 080365 Problem Elevated LFTs R94.5 Active 737384682 Problem Unspecified mood [affective] disorder F39 Active 50245216 Problem Essential hypertension I10 Active 05005296 ALLERGIES Substance Reaction Event Type Date Status Levaquin itching Drug Allergy Apr, Active SOCIAL HISTORY Never Assessed PLAN OF CARE Activity Details Follow Up 2 Weeks with Brody Reason: VITAL SIGNS Height 72 in 2016-04-08 Weight 177.8 lbs 2016-04-08 Temperature 98.6 degrees Fahrenheit 2016-04-08 Heart Rate 96 bpm 2016-04-08 Respiratory Rate 20 2016-04-08 BMI 24.11 kg/m2 2016-04-08 Blood pressure systolic 158 mmHg 2016-04-08 Blood pressure diastolic 88 mmHg 2016-04-08 MEDICATIONS Medication Instructions Dosage Frequency Start Date End Date Duration Status Hydrocodone-Acetaminophen 5-325 MG Orally TID PRN 1 tablet as needed Jan, 2 weeks Active RESULTS No Results PROCEDURES No Known procedures IMMUNIZATIONS No Known Immunizations MEDICAL (GENERAL) HISTORY Type Description Date Medical History TIA Medical History hypertension Surgical History cholecystectomy Surgical History cervical fusion Surgical History lumbar laminectomy
--- OUTSIDE RECORDS SUMMARY | 2016-12-28 17:52 | XMS REPORT ---
Author Author LORENZO DAWKINS Organization [facility] Address [address] [place] [address] Care Team Providers Care Asphalt Roller Person Name Role Phone LORENZO DAWKINS Unavailable PROBLEMS Type Condition ICD9-CM Code [id number] Code Onset Dates Condition Status SNOMED Code Problem Substance abuse F19.10 Active 25970235 Problem Spinal stenosis of lumbar region M48.06 Active 80621026 Problem Moderate major depression F32.1 Active 966854 Problem Elevated LFTs R94.5 Active 523373560 Problem Unspecified mood [affective] disorder F39 Active 62960104 Problem Essential hypertension I10 Active 49335071 ALLERGIES No Information SOCIAL HISTORY Never Assessed PLAN OF CARE VITAL SIGNS MEDICATIONS Unknown Medications RESULTS No Results PROCEDURES No Known procedures IMMUNIZATIONS No Known Immunizations MEDICAL (GENERAL) HISTORY Type Description Date Medical History TIA Medical History hypertension Surgical History cholecystectomy Surgical History cervical fusion Surgical History lumbar laminectomy
--- OUTSIDE RECORDS SUMMARY | 2016-12-28 17:56 | XMS REPORT ---
Author Author LORENZO DAWKINS [facility] Address [address] [place] [address] Care Team Providers Care Solvent Recoverer Name Role Phone LORENZO DAWKINS Unavailable PROBLEMS Type Condition ICD9-CM Code [id number] Code Onset Dates Condition Status SNOMED Code Problem Substance abuse F19.10 Active 84231759 Problem Spinal stenosis of lumbar region M48.06 Active 12432686 Problem Moderate major depression F32.1 Active 940316 Problem Elevated LFTs R94.5 Active 582535815 Problem Unspecified mood [affective] disorder F39 Active 76948021 Problem Essential hypertension I10 Active 06728190 ALLERGIES No Known Allergies SOCIAL HISTORY No smoking Hx information available PLAN OF CARE VITAL SIGNS MEDICATIONS No Known Medications RESULTS No Results PROCEDURES No Known procedures IMMUNIZATIONS No Known Immunizations
--- OUTSIDE RECORDS SUMMARY | 2016-12-28 18:00 | XMS REPORT ---
Author Author LORENZO DAWKINS Organization [facility] Address [address] [place] [address] Care Team Providers Care Manager Ethics Name Role Phone LORENZO DAWKINS Unavailable PROBLEMS Type Condition ICD9-CM Code TZX17-AG Code Onset Dates Condition Status SNOMED Code Problem Substance abuse F19.10 Active 58464476 Problem Spinal stenosis of lumbar region M48.06 Active 66563733 Problem Moderate major depression F32.1 Active 185714 Problem Elevated LFTs R94.5 Active 460710149 Problem Unspecified mood [affective] disorder F39 Active 73869937 Problem Essential hypertension I10 Active 12995037 ALLERGIES No Information SOCIAL HISTORY Never Assessed PLAN OF CARE VITAL SIGNS MEDICATIONS Unknown Medications RESULTS No Results PROCEDURES No Known procedures IMMUNIZATIONS No Known Immunizations MEDICAL (GENERAL) HISTORY Type Description Date Medical History TIA Medical History hypertension Surgical History cholecystectomy Surgical History cervical fusion Surgical History lumbar laminectomy
--- OUTSIDE RECORDS SUMMARY | 2016-12-28 18:02 | XMS REPORT ---
Author Author LORENZO DAWKINS Organization [facility] Address [address] [place] [address] Care Team Providers Care Finished Hardware Erector Name Role Phone LORENZO DAWKINS Unavailable PROBLEMS Type Condition ICD9-CM Code [id number] Code Onset Dates Condition Status SNOMED Code Problem Substance abuse F19.10 Active 26486278 Problem Spinal stenosis of lumbar region M48.06 Active 57274679 Problem Moderate major depression F32.1 Active 624384 Problem Elevated LFTs R94.5 Active 233069411 Problem Unspecified mood [affective] disorder F39 Active 12944832 Problem Essential hypertension I10 Active 09655856 ALLERGIES No Information SOCIAL HISTORY Never Assessed PLAN OF CARE VITAL SIGNS MEDICATIONS Unknown Medications RESULTS Name Result Date Reference Range Ultrasound : Abdomen, LIMITED (specify organ) 2016-04-30 PROCEDURES No Known procedures IMMUNIZATIONS No Known Immunizations MEDICAL (GENERAL) HISTORY Type Description Date Medical History TIA Medical History hypertension Surgical History cholecystectomy Surgical History cervical fusion Surgical History lumbar laminectomy
--- OUTSIDE RECORDS SUMMARY | 2016-12-28 18:03 | XMS REPORT ---
Author Author JARED LORA Organization [facility] Address [address] [place] [address] Care Team Providers Care Wax Ball Molder Name Role Phone JARED LORA Unavailable PROBLEMS Type Condition ICD9-CM Code [id number] Code Onset Dates Condition Status SNOMED Code Problem Substance abuse F19.10 Active 06979109 Problem Spinal stenosis of lumbar region M48.06 Active 85422808 Problem Moderate major depression F32.1 Active 802740 Problem Elevated LFTs R94.5 Active 235983517 Problem Unspecified mood [affective] disorder F39 Active 36239578 Problem Essential hypertension I10 Active 07121382 ALLERGIES Substance Reaction Event Type Date Status Levaquin itching Drug Allergy May, Active SOCIAL HISTORY Never Assessed PLAN OF CARE Activity Details Follow Up prn Reason: VITAL SIGNS Height 72 in 2016-05-02 Weight 178.6 lbs 2016-05-02 Temperature 98.6 degrees Fahrenheit 2016-05-02 Heart Rate 98 bpm 2016-05-02 Respiratory Rate 18 2016-05-02 BMI 24.22 kg/m2 2016-05-02 Blood pressure systolic 138 mmHg 2016-05-02 Blood pressure diastolic 74 mmHg 2016-05-02 MEDICATIONS Medication Instructions Dosage Frequency Start Date End Date Duration Status Hydrocodone-Acetaminophen 5-325 MG Orally every 6 hrs 1 tablet as needed 6h May, May, 5 days Active Hydrocodone-Acetaminophen 5-325 MG Orally TID PRN 1 tablet as needed Jan, 2 weeks Active Naproxen 500 MG Orally every 12 hrs 1 tablet as needed 12h May, May, 14 days Active RESULTS No Results PROCEDURES No Known procedures IMMUNIZATIONS No Known Immunizations MEDICAL (GENERAL) HISTORY Type Description Date Medical History TIA Medical History hypertension Surgical History cholecystectomy Surgical History cervical fusion Surgical History lumbar laminectomy
--- OUTSIDE RECORDS SUMMARY | 2016-12-28 18:03 | XMS REPORT ---
Author Author LORENZO DAWKINS Organization [facility] Address [address] [place] [address] Care Team Providers Care Machine Attendant Name Role Phone LORENZO DAWKINS Unavailable PROBLEMS Type Condition ICD9-CM Code [id number]-SM Code Onset Dates Condition Status SNOMED Code Problem Unspecified mood [affective] disorder F39 Active 38323303 Problem Essential hypertension I10 Active 41325927 Problem Moderate major depression F32.1 Active 126411 Problem Elevated LFTs R94.5 Active 007309000 ALLERGIES Substance Reaction Event Type Date Status Levaquin itching Drug Allergy Jan, Active SOCIAL HISTORY No smoking Hx information available PLAN OF CARE Activity Details Follow Up 2 Weeks with Brody f/jayson campo pain Reason: VITAL SIGNS Height 72 in 2016-02-19 Weight 189 lbs 2016-02-19 Temperature 98.3 degrees Fahrenheit 2016-02-19 Heart Rate 100 bpm 2016-02-19 Respiratory Rate 20 2016-02-19 BMI 25.63 kg/m2 2016-02-19 Blood pressure systolic 158 mmHg 2016-02-19 Blood pressure diastolic 98 mmHg 2016-02-19 MEDICATIONS Medication Instructions Dosage Frequency Start Date End Date Duration Status Hydrocodone-Acetaminophen 5-325 MG Orally TID PRN 1 tablet as needed Jan, 2 Mar, 2016 2 weeks Active RESULTS No Results PROCEDURES Procedure Date Ordered Related Diagnosis Body Site Office Visit, New Pt., Level 3 Feb 19, 2016 IMMUNIZATIONS No Known Immunizations
[2016-12-28] MEDS ORDERED: predniSONE 20 MG TAB PO ONE (18:45)
[2016-12-28] MEDS ORDERED: KETOROLAC 30 MG/ML VIAL IVP ONE (18:45)
--- NOTE | 2016-12-28 18:53 | ED Back Pain ---
General Chief Complaint: Back Problems Stated Complaint: BACK PAIN/NUMBNESS/TINGLING Nursing Triage Note: TO ER WITH REPORTS OF BACK PAIN AND RIGHT HIP PAIN. THIS IS CHRONIC FOR THIS PATIENT. PATIENT REPORTS OTC MEDICATION USE, BUT DOESN'T KNOW WHAT IT IS. PATIENT IS AGREEABLE TO ANYTHING THAT IS SUGGESTED. "HAVE YOU TAKEN TYLENOL, IBUPROFEN, NAPROXEN, ICE, HEAT, PHYSICAL THARPY, ETC." PATIENT REPORTS THAT HE TAKES ALL OF THAT AND REFUSES PHYSICAL THERAPY. PATIENT ALSO REPORTS USE OF FLEXERIL. Nursing Sepsis Screen: No Definite Risk Source of Information: Patient, Old Records Exam Limitations: No Limitations History of Present Illness Time Seen by Provider: 18:43 Initial Comments Patient has ER for a chief complaint of back pain that starts around his right hip and radiates slightly forward to his right lower quadrant of his abdomen. It is worse with laying on that hip or positioning. He notices started to act up after he was at his friend's house and went up to adjust the TV antenna. He started doing his back exercises and this did not get better so he came here. Patient states he is a long standing history of chronic back pain and most recently a month ago he had an CT done of his back demonstrating discs impinging on his nerves. Since that time has followed up with his primary care physician Dr. Dawkins and she has referred him to orthopedic surgery. He says he has a $300 bill he has to take care of before he can get scheduled for surgery with the orthopedist and he is working on that next. He has tried physical therapy but felt like the last time he went and made him worse or is not been back. He has a back brace uses moist heat 3 times a day as well as 2 tablets of Tylenol twice a day. He does not use NSAIDs because over a year ago when he had his neck fused his surgeon told him to lay off NSAIDs for the bones could heal. When asked to provide a urine as he was having right lower quadrant pain and pain directly over the wing of his office coxa, the patient responded, "it ain' t no "expletive" urinary tract infection." He is using Flexeril at times although he thinks the Flexeril makes his back pain worse. Patient has had no instances of incontinence or urinary hesitancy or falls since his back pain became exacerbated this afternoon. Allergies and Home Medications Allergies Coded Allergies: levofloxacin (Verified Allergy, Mild, 08/06/16) Home Medications Cyclobenzaprine HCl 10 Mg Tablet, 10 MG PO Q8H PRN for SPASMS, #14 Ref 0 Prescribed by: VESNA POWELL on 09/07/161923 Cyclobenzaprine HCl 5 Mg Tablet, 5 MG PO TID PRN for PAIN-MODERATE TO SEVERE, # 14 Prescribed by: LAURA LUNDBERG on 10/09/161748 Famotidine 20 Mg Tablet, 20 MG PO BID, #20 Ref 0 Prescribed by: VESNA POWELL on 09/07/161923 Naproxen 500 Mg Tablet, 500 MG PO BID, #20 Ref 0 Prescribed by: VESNA POWELL on 09/07/161923 Naproxen 500 Mg Tablet, 500 MG PO BID PRN for PAIN-SEVERE, #30 Prescribed by: LAURA LUNDBERG on 10/09/161748 Prednisone 20 Mg Tab, 40 MG PO DAILY, #10 Ref 0 Prescribed by: VESNA POWELL on 09/07/161923 Constitutional: No chills, No diaphoresis EENTM: No ear discharge, No ear pain Respiratory: No cough, No short of breath Cardiovascular: No chest pain, No edema Gastrointestinal: No abdominal pain, No constipation, No diarrhea, nausea, No vomiting Genitourinary: No discharge, No dysuria Musculoskeletal: see HPI, back pain Skin: No pruritus, No rash Psychiatric/Neurological: Denies Headache, Denies Numbness, Denies Paresthesia Past Yzgspkr-Pjbvkb-Vsrgsx Hx Patient Social History Alcohol Use: Denies Use Recreational Drug Use: Yes (opiates and marijuana + on admission) Drug of Choice: POT, METH Smoking Status: Former Smoker Type Used: Cigarettes Former Smoker, Quit: Aug 06, 1992 2nd Hand Smoke Exposure: No Recent Foreign Travel: No Contact w/Someone Who Travel: No Recent Infectious Disease Expo: No Recent Hopitalizations: No Physical Abuse: No Sexual Abuse: No Mistreated: No Fear: No Immunizations Up To Date Tetanus Booster (TDap): Unknown Seasonal Allergies Seasonal Allergies: No Surgeries History of Surgeries: Yes (BACK SURGERY, STABBED IN LEFT KNEE, STABBED IN LEFT BUTTOCK) Surgeries: Gallbladder Respiratory History of Respiratory Disorde: Yes Respiratory Disorders: Asthma Cardiovascular History of Cardiac Disorders: Yes ( REPORTS HX HTN) Cardiac Disorders: Hypertension Neurological History of Neurological Disord: Yes (APHASIA HX, narcolepsy) Neurological Disorders: TIA Reproductive System Hx Reproductive Disorders: No Sexually Transmitted Disease: No HIV/AIDS: No Genitourinary History of Genitourinary Disor: Yes Genitourinary Disorders: Renal Failure Gastrointestinal History of Gastrointestinal Di: Yes (HERNIA) Gastrointestinal Disorders: Gastrointestinal Bleed, Hepatitis Musculoskeletal History of Musculoskeletal Dis: Yes (REMOVED A DISC. 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), anemia, transfusion) Adverse Reaction to a Blood Tr: No Family Medical History Significant Family History: No Pertinent Family Hx Physical Exam Vital Signs Vital Sign - Last 12Hours 12/28/16 18:36 Temp 98.4 Pulse 108 Resp 18 B/P (MAP) 152/89 Pulse Ox 100 O2 Delivery Room Air Capillary Refill : Less Than 3 Seconds General Appearance: WD/WN, Anxious, Mild Distress HEENT: PERRL/EOMI, Pharynx Normal Neck: Full Range of Motion, Normal Inspection, Non Tender Cardiovascular: Regular Rate, Rhythm, No Edema Respiratory: Chest Non Tender, No Accessory Muscle Use, No Respiratory Distress Peripheral Pulses: 2+ Dorsalis Pedis (R), 2+ Left Dors-Pedis (L) Gastrointestinal: Normal Bowel Sounds, Non Tender, Soft Back: Normal Inspection, No CVA Tenderness, No Vertebral Tenderness, Muscle Spasm, No Vertebral Tenderness, Other (pain on the lateral lumbar paraspinous muscles as well as in the region of the ala of the os coxa superficially. No sciatica elicited.) Extremity: No Pedal Edema, Other (hurts to put pressure in his right leg in the same area of his back pain.) Neurologic/Psychiatric: Alert, Oriented x3, No Motor/Sensory Deficits Skin: Normal Color, Warm/Dry Progress/Results/Core Measures Results/Orders My Orders Orders - STEVEN IBARRA Ketorolac Injection (Toradol Injection) (12/28/16 18:45) Prednisone Tablet (Deltasone Tablet) (12/28/16 18:45) Vital Signs/I&O Vital Sign - Last 12Hours 12/28/16 18:36 Temp 98.4 Pulse 108 Resp 18 B/P (MAP) 152/89 Pulse Ox 100 O2 Delivery Room Air Blood Pressure Mean: 110 Progress Note : Time: 18:51 Progress Note Reviewed the last note and the patient had a MRI in November, 1 month ago showing some moderate encroachment of the disks into the neural foramina. Patient will need to follow-up with surgery. He Marquise has outpatient follow-up secured by his primary care physician. We will start him on steroids and NSAIDs. The reason he is not taking NSAIDs because his surgeon wanted his bones to heal better after his last surgery over a year ago which is well outside the typical time frame for bone healing. We'll encourage him to use the Tylenol appropriately. Departure Impression Impression: Primary Impression: Back pain Qualified Codes: M54.5 - Low back pain; G89.29 - Other chronic pain Disposition: HOME, SELF-CARE Condition: Stable Departure-Patient Inst. Decision time for Depature: 19:01 Referrals: LORENZO DAWKINS MD (PCP/Family) Primary Care Physician Patient Instructions: Lumbar Muscle Strain (DC) Add. Discharge Instructions: Continue to use the heat wraps, back brace, Flexeril every 8 hours as needed. Start the Naprosyn prescription dose one tablet twice a day for the next 2 weeks. Take the prednisone either 2 tablets in the morning or one tablet twice a day for the next 5 days. If you're having breakthrough pain you can use Tylenol 2 tablets of extra strength every 8 hours as needed. I highly recommend you follow-up with physical therapy and your primary care physician as well as make your appointment with your orthopedic surgeon for your back. All discharge instructions reviewed with patient and/or family. Voiced understanding. Scripts Prednisone (Prednisone) 20 Mg Tab 40 MG PO DAILY for 5 Days, #10 TAB 0 Refills Prov: STEVEN IBARRA 12/28/16 Naproxen (Naprosyn) 500 Mg Tablet 500 MG PO BID for 14 Days, #30 TAB 0 Refills Prov: STEVEN IBARRA 12/28/16 Copy Copies To 1: RONAK ARRIAGA DO STEVEN IBARRA Dec 28, 2016 18:53
[2016-12-28] MEDS ORDERED: NAPR500T PO (19:03)
[2016-12-28] MEDS ORDERED: PRD20T PO (19:03)
[2016-12-28 19:24] VITALS: BP 152/89
[2016-12-28] MEDS ORDERED: ONDA4TAB11 PO (19:27)
== END 2016-12-28 18:24 | disposition home or self-care (01) ==
LOC: EDUNIT# 17:42 → ER 17:44
DX: M54.5 Low back pain (principal); F31.9 Bipolar disorder, unspecified; M47.9 Spondylosis, unspecified; J45.909 Unspecified asthma, uncomplicated; F12.90 Cannabis use, unspecified, uncomplicated; F15.90 Other stimulant use, unspecified, uncomplicated; Z86.73 Personal history of transient ischemic attack (TIA), and cerebral infarction without residual deficits; Z87.891 Personal history of nicotine dependence
CPT/HCPCS: 99284

== ENCOUNTER 2019-01-03 20:03 | Emergency (ER) | payer MEDICAID ==
[~2019-01-03] VITALS: Ht 180 cm; Wt 78.6 kg
[~2019-01-03 20:03] MED LIST changes: +NAPR-1071 PO; +NAPR-915 PO; -NAPR500T PO; -NAPR500T3 PO; +ONDA4TAB11 PO
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
[2019-01-03] MEDS ORDERED: LIDOCAINE 1% INJ 20 ML 20 ML VIAL INJ ONE (20:30)
[2019-01-03] MEDS ORDERED: TETANUS,DIPTH,PERTUSS P/F (BOOSTRIX) 0.5 ML VIAL IM ONE (20:30)
[2019-01-03 20:52] VITALS: BP 125/99
== END 2019-01-03 20:52 | disposition home or self-care (01) ==
LOC: EDUNIT# 20:03 → ER 20:07
DX: S61.422A Laceration with foreign body of left hand, initial encounter (principal); I10 Essential (primary) hypertension; J45.909 Unspecified asthma, uncomplicated; F31.9 Bipolar disorder, unspecified; F60.9 Personality disorder, unspecified; D64.9 Anemia, unspecified; Z86.73 Personal history of transient ischemic attack (TIA), and cerebral infarction without residual deficits; Z88.1 Allergy status to other antibiotic agents; Z79.52 Long term (current) use of systemic steroids; Z87.891 Personal history of nicotine dependence; V18.4XXA Pedal cycle driver injured in noncollision transport accident in traffic accident, initial encounter
CPT/HCPCS: 12001; 90715

== ENCOUNTER 2019-01-05 16:00 | Emergency (ER) | payer MEDICAID ==
[~2019-01-05] VITALS: Ht 180.3 cm; Wt 78.6 kg
--- NOTE | 2019-01-05 17:18 | ED Integumentary General ---
General Chief Complaint: Skin/Wound Problems Stated Complaint: WOUND CHECK LT HAND Nursing Triage Note: has laceration to L hand that was sutured 2 days ago in this ED, is worried that it may be infected Source: patient Exam Limitations: no limitations History of Present Illness Date Seen by Provider: Jan 05, 2019 Time Seen by Provider: 17:18 Initial Comments 53-year-old male patient presents with complaints of redness to the left hand. Patient states he was seen in the emergency department 2 days ago with laceration repair to the left hand. Reports increased redness and warmth today. Patient denies pain. Timing/Duration: yesterday, getting worse Location: hands (left hand) Modifying Factors: worse with other (denies improvement with ice packs) Allergies and Home Medications Allergies Coded Allergies: levofloxacin (Verified Allergy, Mild, 08/06/16) Home Medications Cyclobenzaprine HCl 10 Mg Tablet, 10 MG PO Q8H PRN for SPASMS Prescribed by: VESNA POWELL on 09/07/161923 Cyclobenzaprine HCl 5 Mg Tablet, 5 MG PO TID PRN for PAIN-MODERATE TO SEVERE Prescribed by: LAURA LUNDBERG on 10/09/161748 Famotidine 20 Mg Tablet, 20 MG PO BID Prescribed by: VESNA POWELL on 09/07/161923 Naproxen 500 Mg Tablet, 500 MG PO BID Prescribed by: VESNA POWELL on 09/07/161923 Naproxen 500 Mg Tablet, 500 MG PO BID PRN for PAIN-SEVERE Prescribed by: LAURA LUNDBERG on 10/09/161748 Naproxen 500 Mg Tablet, 500 MG PO BID Prescribed by: STEVEN IBARRA on 12/28/161902 Ondansetron 4 Mg Tab.rapdis, 4 MG PO Q6H PRN for NAUSEA/VOMITING Prescribed by: STEVEN IBARRA on 12/28/161926 Prednisone 20 Mg Tab, 40 MG PO DAILY Prescribed by: VESNA POWELL on 09/07/161923 Prednisone 20 Mg Tab, 40 MG PO DAILY Prescribed by: TSEVEN IBARRA on 12/28/161902 Sulfamethoxazole/Trimethoprim 1 Each Tablet, 1 EACH PO UD 2 tabs po x1 dose, then 1 tab po bid Prescribed by: VESNA POWELL on 01/05/19 1723 Patient Home Medication List Home Medication List Reviewed: Yes Review of Systems Review of Systems Constitutional: No chills, No dizziness, No fever, No malaise Respiratory: no symptoms reported Cardiovascular: no symptoms reported Musculoskeletal: No joint pain, No joint swelling Skin: see HPI; No lesions, No lumps, No rash Psychiatric/Neurological: Denies Numbness, Denies Paresthesia, Denies Tingling, Denies Weakness All Other Systems Reviewed Negative Unless Noted: Yes (Negative excepted noted.) Past Krlhcwk-Btzhwb-Sozuqw Hx Past Med/Social Hx: Reviewed Nursing Past Med/Soc Hx Patient Social History Alcohol Use: Denies Use Recreational Drug Use: Yes (opiates and marijuana + on admission) Drug of Choice: Pot Type Used: Cigarettes Former Smoker, Quit: Aug 06, 1992 2nd Hand Smoke Exposure: No Recent Foreign Travel: No Contact w/Someone Who Travel: No Recent Infectious Disease Expo: No Recent Hopitalizations: No Immunizations Up To Date Tetanus Booster (TDap): Less than 5yrs Seasonal Allergies Seasonal Allergies: No Past Medical History Surgeries: Yes (BACK SURGERY, STABBED IN LEFT KNEE, STABBED IN LEFT BUTTOCK) Gallbladder Respiratory: Yes Asthma Cardiac: Yes ( REPORTS HX HTN) Hypertension Neurological: Yes (APHASIA HX, narcolepsy) TIA Reproductive Disorders: No Sexually Transmitted Disease: No HIV/AIDS: No Genitourinary: Yes Renal Failure Gastrointestinal: Yes (HERNIA) Gastrointestinal Bleed, Hepatitis Musculoskeletal: Yes (REMOVED A DISC. 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), anemia, transfusion) Adverse Reaction/Blood Tranf: No Family Medical History Reviewed Nursing Family Hx No Pertinent Family Hx Physical Exam Vital Signs Vital Signs - First Documented 01/05/19 01/05/19 16:13 17:30 Temp 35.7 Pulse 113 Resp 18 B/P (MAP) 143/94 (110) Pulse Ox 95 Capillary Refill : Less Than 3 Seconds General Appearance: WD/WN, no apparent distress Cardiovascular: normal peripheral pulses, regular rate, rhythm, no murmur Respiratory: lungs clear, normal breath sounds, no respiratory distress, no accessory muscle use Extremities: normal range of motion, non-tender, normal capillary refill, other (mild swelling, erythema, and warmth to the left posterior hand. Sutures intact. No drainage from the laceration site. Nontender.) Neurologic/Psychiatric: no motor/sensory deficits, alert, normal mood/affect, oriented x 3 Skin: normal color, warm/dry, other (mild swelling, erythema, and warmth to the left posterior hand. Sutures intact. No drainage from the laceration site. Nontender.) Skin Problem Location: upper extremities (left hand) Skin Problem Character: erythema, swelling, warm Procedures/Interventions Suture Size: 4-0 Progress/Results/Core Measures Results/Orders Vital Signs/I&O 01/05/19 01/05/19 16:13 17:30 Temp 35.7 35.7 Pulse 113 113 Resp 18 18 B/P (MAP) 143/94 (110) 143/94 (110) Pulse Ox 95 Blood Pressure Mean: 110 POS Departure Communication (Admissions) Patient seen and evaluated. Plan for discharge to home with oral Bactrim. Impression Primary Impression: Cellulitis of left hand Additional Impression: Laceration of left hand Qualified Codes: S61.412D - Laceration without foreign body of left hand, subsequent encounter Disposition: HOME, SELF-CARE Condition: Improved Departure-Patient Inst. Decision time for Depature: 17:22 Referrals: NO,LOCAL PHYSICIAN (PCP/Family) Primary Care Physician Patient Instructions: Laceration Repair With Stitches (DC), Cellulitis and Erysipelas (Skin Infections) Add. Discharge Instructions: All discharge instructions reviewed with patient and/or family. Voiced understanding. Medications as instructed. Continue usual home medications. Elevate the left hand on pillows above the level of heart. Shower with antibacterial soap. Follow-up with your family practitioner for recheck as outpatient in the next 1-2 days. Call first thing tomorrow morning for appointment time. Return to the emergency department for worsened symptoms or any other concerns. Scripts Sulfamethoxazole/Trimethoprim (Bactrim Ds Tablet) 1 Each Tablet 1 EACH PO UD, #15 TAB 0 Refills 2 tabs po x1 dose, then 1 tab po bid Prov: VESNA POWELL 01/05/19 VESNA POWELL Jan 05, 2019 17:18 POS
[2019-01-05] MEDS ORDERED: SULF1TAB35 PO (17:23)
--- NOTE | 2019-01-05 17:25 | NUR ---
swelling marked with skin marker on L hand
[2019-01-05 17:30] VITALS: BP 143/94
== END 2019-01-05 17:30 | disposition home or self-care (01) ==
LOC: EDUNIT# 16:00 → ER 16:03
DX: L03.114 Cellulitis of left upper limb (principal); S61.412D Laceration without foreign body of left hand, subsequent encounter; I10 Essential (primary) hypertension; J45.909 Unspecified asthma, uncomplicated; F31.9 Bipolar disorder, unspecified; F60.9 Personality disorder, unspecified; D64.9 Anemia, unspecified; Z86.73 Personal history of transient ischemic attack (TIA), and cerebral infarction without residual deficits; Z79.52 Long term (current) use of systemic steroids; Z87.891 Personal history of nicotine dependence; Z88.1 Allergy status to other antibiotic agents; X58.XXXD Exposure to other specified factors, subsequent encounter
CPT/HCPCS: 99282

== ENCOUNTER 2019-01-15 11:31 | Emergency (ER) | payer MEDICARE, MEDICAID ==
[~2019-01-15] VITALS: Ht 180.3 cm; Wt 79.5 kg
[2019-01-15 11:54] VITALS: BP 130/76
== END 2019-01-15 11:54 | disposition home or self-care (01) ==
LOC: EDUNIT# 11:31 → ER 11:32
DX: S61.412D Laceration without foreign body of left hand, subsequent encounter (principal); X58.XXXD Exposure to other specified factors, subsequent encounter

== ENCOUNTER 2019-07-19 17:19 | Emergency (ER) | payer MEDICARE, MEDICAID ==
[~2019-07-19] VITALS: Ht 170.2 cm; Wt 83.2 kg
[2019-07-19] MEDS ORDERED: SULF1TAB35 PO (18:22)
--- NOTE | 2019-07-19 18:22 | ED Integumentary General ---
General Chief Complaint: Skin/Wound Problems Stated Complaint: POSSIBLE SPIDER BITE,RIGHT ARM History of Present Illness Date Seen by Provider: July 19, 2019 Time Seen by Provider: 18:05 Initial Comments 53 year old male presents with cellulitis to his right forearm. He is unsure if he had a spider bite in the last 2 days or he has an agave plant, that he may have rubbed against and gotten a splinter from. He uses IV meth, last time was 2 weeks ago. Timing/Duration: getting worse Severity: mild Location: extremities (right forearm) Possible Cause: no cause identified Associated Symptoms: change in skin texture; No fever, No hives, No jaundice Allergies and Home Medications Allergies Coded Allergies: levofloxacin (Verified Allergy, Mild, 08/06/16) Home Medications Cyclobenzaprine HCl 10 Mg Tablet, 10 MG PO Q8H PRN for SPASMS Prescribed by: VESNA POWELL on 09/07/161923 Cyclobenzaprine HCl 5 Mg Tablet, 5 MG PO TID PRN for PAIN-MODERATE TO SEVERE Prescribed by: LAURA LUNDBERG on 10/09/161748 Famotidine 20 Mg Tablet, 20 MG PO BID Prescribed by: VESNA POWELL on 09/07/161923 Naproxen 500 Mg Tablet, 500 MG PO BID Prescribed by: VESNA POWELL on 09/07/161923 Naproxen 500 Mg Tablet, 500 MG PO BID PRN for PAIN-SEVERE Prescribed by: LAURA LUNDBERG on 10/09/161748 Naproxen 500 Mg Tablet, 500 MG PO BID Prescribed by: STEVEN IBARRA on 12/28/161902 Ondansetron 4 Mg Tab.rapdis, 4 MG PO Q6H PRN for NAUSEA/VOMITING Prescribed by: STEVEN IBARRA on 12/28/161926 Prednisone 20 Mg Tab, 40 MG PO DAILY Prescribed by: VESNA POWELL on 09/07/161923 Prednisone 20 Mg Tab, 40 MG PO DAILY Prescribed by: STEVEN IBARRA on 12/28/161902 Sulfamethoxazole/Trimethoprim 1 Each Tablet, 1 EACH PO UD 2 tabs po x1 dose, then 1 tab po bid Prescribed by: VESNA POWELL on 01/05/19 172 Sulfamethoxazole/Trimethoprim 1 Each Tablet, 1 EACH PO BID Prescribed by: HAYDEE MOORE on 07/19/19 1822 Patient Home Medication List Home Medication List Reviewed: Yes Review of Systems Review of Systems Constitutional: no symptoms reported, see HPI Skin: see HPI, change in color (erythema right forearm) All Other Systems Reviewed Negative Unless Noted: Yes Past Jghixie-Wgynau-Lisgbk Hx Past Med/Social Hx: Reviewed Nursing Past Med/Soc Hx Patient Social History Recreational Drug Use: Yes Drug of Choice: marijuana and IV methamphetamine Type Used: Cigarettes Former Smoker, Quit: Aug 06, 1992 2nd Hand Smoke Exposure: No Recent Foreign Travel: No Contact w/Someone Who Travel: No Recent Hopitalizations: No Immunizations Up To Date Tetanus Booster (TDap): Less than 5yrs Seasonal Allergies Seasonal Allergies: No Past Medical History Surgeries: Yes (BACK SURGERY, STABBED IN LEFT KNEE, STABBED IN LEFT BUTTOCK) Gallbladder Respiratory: Yes Asthma Cardiac: Yes ( REPORTS HX HTN) Hypertension Neurological: Yes (APHASIA HX, narcolepsy) TIA Reproductive Disorders: No Sexually Transmitted Disease: No HIV/AIDS: No Genitourinary: Yes Renal Failure Gastrointestinal: Yes (HERNIA) Gastrointestinal Bleed, Hepatitis Musculoskeletal: Yes (REMOVED A DISC. 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), anemia, transfusion) Adverse Reaction/Blood Tranf: No Family Medical History No Pertinent Family Hx Physical Exam Vital Signs Vital Signs - First Documented 07/19/19 17:24 Temp 36.8 Pulse 117 Resp 18 B/P (MAP) 175/95 (121) Pulse Ox 96 O2 Delivery Room Air Capillary Refill : General Appearance: WD/WN, no apparent distress Cardiovascular: normal peripheral pulses, regular rate, rhythm, no murmur, other (right radial and ulnar pulses 2+ and symmetric with the left) Respiratory: chest non-tender, lungs clear Gastrointestinal: normal bowel sounds, non tender, soft Skin: normal color, warm/dry Skin Problem Location: upper extremities (right forearm) Skin Problem Character: abscess (marked induration no fluctuance, tender to palpation, no puncture sites), swelling Lymphatic: no adenopathy, other Procedures/Interventions Suture Size: 4-0 Progress/Results/Core Measures Results/Orders Vital Signs/I&O 07/19/19 07/19/19 17:24 18:29 Temp 36.8 36.8 Pulse 117 105 Resp 18 17 B/P (MAP) 175/95 (121) 137/99 (121) Pulse Ox 96 99 O2 Delivery Room Air Room Air Departure Impression Primary Impression: Cellulitis of right upper extremity Disposition: HOME, SELF-CARE Condition: Improved Departure-Patient Inst. Decision time for Depature: 18:20 Referrals: NO,LOCAL PHYSICIAN (PCP/Family) Primary Care Physician Patient Instructions: Cellulitis (Skin Infection), Adult (DC) Add. Discharge Instructions: Take antibiotics as prescribed. Alternate between Tylenol 650 mg and ibuprofen 600 mg every 4 hours for fever, pain or swelling. Follow[facility] with [facility] if symptoms are not improving or worsen. Return to the emergency department for new, urgent health care needs. All discharge instructions reviewed with patient and/or family. Voiced understanding. Scripts Sulfamethoxazole/Trimethoprim (Bactrim Ds Tablet) 1 Each Tablet 1 EACH PO BID, #20 TAB 0 Refills Prov: AHYDEE MOORE 07/19/19 HAYDEE MOORE July 19, 2019 18:22
[2019-07-19 18:29] VITALS: BP 137/99
== END 2019-07-19 18:29 | disposition home or self-care (01) ==
LOC: EDUNIT# 17:19 → ER 17:21
DX: L03.113 Cellulitis of right upper limb (principal); J45.909 Unspecified asthma, uncomplicated; Z88.1 Allergy status to other antibiotic agents; Z79.52 Long term (current) use of systemic steroids; Z87.891 Personal history of nicotine dependence; Z86.73 Personal history of transient ischemic attack (TIA), and cerebral infarction without residual deficits
CPT/HCPCS: 99282

== ENCOUNTER 2019-07-25 16:08 | Emergency (ER) | payer MEDICARE, MEDICAID ==
[~2019-07-25] VITALS: Ht 182.8 cm; Wt 83.0 kg
--- NOTE | 2019-07-25 16:25 | NUR ---
BLOOD DRAWN BY HAYDEE OWUSU
[2019-07-25] MEDS ORDERED: CLIN300C11 PO (16:29)
[2019-07-25] MEDS ORDERED: ASPI325T32 PO (16:29)
[2019-07-25] MEDS ORDERED: RIVA1TAB PO (16:29)
--- NOTE | 2019-07-25 16:29 | ED Integumentary General ---
General Chief Complaint: Skin/Wound Problems Stated Complaint: R ARM PAIN Source: patient, old records History of Present Illness Date Seen by Provider: July 25, 2019 Time Seen by Provider: 16:10 Initial Comments PT ARRIVES VIA POV FROM HOME C/O PAIN AND REDNESS TO RIGHT AC SPACE AREA ALSO STATES THAT THE VEIN IS HARD AND TENDER PT IS LONGSTANDING IV DRUG USER--METH, USUALLY--CLAIMS HE LAST INJECTED ABOUT 2 WEEKS AGO, IN HIS LOWER RIGHT FOREARM/HAND PT WAS SEEN HERE 07/19/19 FOR REDNESS TO THE AREA, AND DX WITH CELLULITIS AND PLACED ON BACTRIM--PT STATES HE IS STILL TAKING IT TWICE A DAY AND HAS NOT MISSED ANY DOSES STATES THE VEIN IS NOW GETTING HARD AND PAINFUL NO FEVER NO DRAINAGE NO SWELLING OF ARM NO SHORTNESS OF BREATH OR CHEST PAIN NO HISTORY OF SIMILAR. PCP: DR. DAWKINS AT [facility] Allergies and Home Medications Allergies Coded Allergies: levofloxacin (Verified Allergy, Mild, 08/06/16) Home Medications Aspirin 325 Mg Tablet.dr, 325 MG PO DAILY Prescribed by: ODALIS VALENZUELA on 07/25/191628 Clindamycin HCl 300 Mg Capsule, 300 MG PO QID Prescribed by: ODALIS VALENZUELA on 07/25/191628 Cyclobenzaprine HCl 10 Mg Tablet, 10 MG PO Q8H PRN for SPASMS Prescribed by: VESNA POWELL on 09/07/161923 Cyclobenzaprine HCl 5 Mg Tablet, 5 MG PO TID PRN for PAIN-MODERATE TO SEVERE Prescribed by: LAURA LUNDBERG on 10/09/161748 Famotidine 20 Mg Tablet, 20 MG PO BID Prescribed by: VESNA POWELL on 09/07/161923 Naproxen 500 Mg Tablet, 500 MG PO BID Prescribed by: VESNA POWELL on 09/07/161923 Naproxen 500 Mg Tablet, 500 MG PO BID PRN for PAIN-SEVERE Prescribed by: LAURA LUNDBERG on 10/09/161748 Naproxen 500 Mg Tablet, 500 MG PO BID Prescribed by: STEVEN IBARRA on 12/28/161902 Ondansetron 4 Mg Tab.rapdis, 4 MG PO Q6H PRN for NAUSEA/VOMITING Prescribed by: STEVEN IBARRA on 12/28/161926 Prednisone 20 Mg Tab, 40 MG PO DAILY Prescribed by: VESNA POWELL on 09/07/161923 Prednisone 20 Mg Tab, 40 MG PO DAILY Prescribed by: STEVEN IBARRA on 12/28/16 190 Rivaroxaban 1 Each Tab.ds.pk, 1 EACH PO UD 15mg by mouth twice daily x 21 days then 20mg by mouth daily Prescribed by: ODALIS VALENZUELA on 07/25/19 1629 Sulfamethoxazole/Trimethoprim 1 Each Tablet, 1 EACH PO UD 2 tabs po x1 dose, then 1 tab po bid Prescribed by: VESNA POWELL on 01/05/19 1723 Sulfamethoxazole/Trimethoprim 1 Each Tablet, 1 EACH PO BID Prescribed by: HAYDEE MOORE on 07/19/19 182 Patient Home Medication List Home Medication List Reviewed: Yes Review of Systems Review of Systems Constitutional: no symptoms reported; No chills, No diaphoresis, No fever Respiratory: no symptoms reported Cardiovascular: no symptoms reported Gastrointestinal: no symptoms reported Musculoskeletal: see HPI Skin: see HPI Psychiatric/Neurological: No Symptoms Reported; Denies Numbness, Denies Paresthesia, Denies Weakness Endocrine: No Symptoms Reported Hematologic/Lymphatic: No Symptoms Reported Past Azjosit-Hppraq-Ynjttz Hx Past Med/Social Hx: Reviewed and Corrections made Patient Social History Alcohol Use: Past History (HISTORY OF ABUSE) Recreational Drug Use: Yes (+ IV DRUGS-"EVERYTHING" KRANTHI METH; RX DRUGS, INC MORPHINE; THC; OTHERS) Drug of Choice: +IV METH / "EVERYTHING: RX DRUGS, INC MORPINE; THC; OTHERS Smoking Status: Former Smoker (2 PPD) Type Used: Cigarettes Former Smoker, Quit: Aug 06, 1992 2nd Hand Smoke Exposure: No Recent Foreign Travel: No Contact w/Someone Who Travel: No Recent Hopitalizations: No Immunizations Up To Date Tetanus Booster (TDap): Less than 5yrs Seasonal Allergies Seasonal Allergies: No Past Medical History Surgeries: Yes (BACK SURGERY;STABBED IN L KNEE & L BUTTOCK;LIPOMA REMOVALS;EGD/COLONOSCOPY) Gallbladder, Orthopedic Respiratory: Yes Asthma Cardiac: Yes ( REPORTS HX HTN) Hypertension Neurological: Yes (APHASIA HX, narcolepsy) TIA Reproductive Disorders: No Sexually Transmitted Disease: No HIV/AIDS: No Genitourinary: Yes (EPIDIDYMO-ORCHITIS; INGUINAL HERNIAS-NO REPAIR DUE TO CONTINUED DRUG USE) Renal Failure Gastrointestinal: Yes (INGUINAL HERNIAS-NO REPAIR DUE TO DRUG USE; HEPATITIS C- NO TREATMENT) Abdominal Hernia, Liver Disease/Jaundice, Gastrointestinal Bleed, Hepatitis Musculoskeletal: Yes (BACK SURGERY; CHRONIC LEFT FOOT PAIN) Degenerate Disk Disease, Arthritis, Back Injury, Chronic Back Pain Endocrine: No HEENT: Yes (NO TEETH) Loss of Vision: Denies Hearing Impairment: Denies Cancer: No Psychosocial: Yes (POLYSUBSTANCE ABUSE) Bipolar, Personality Disorder Integumentary: No Blood Disorders: Yes (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), anemia, transfusion) Adverse Reaction/Blood Tranf: No Family Medical History No Pertinent Family Hx Physical Exam Vital Signs Vital Signs - First Documented 07/25/19 16:12 Temp 36.6 Pulse 98 Resp 18 B/P (MAP) 154/110 (125) Pulse Ox 98 Capillary Refill : General Appearance: WD/WN, no apparent distress HEENT: other (EDENTULOUS) Cardiovascular: normal peripheral pulses, regular rate, rhythm, no edema, no murmur Respiratory: normal breath sounds Extremities: normal range of motion, normal capillary refill, other (LATERAL ASPECT OF RIGHT AC AREA WITH ENGORGED/HARD, ERYTHEMATOUS SUPERFICIAL VEIN, EXTENDING TO PROXIMAL FOREARM. NO OPEN WOUNDS, NO FLUCTUANCE, NO DRAINAGE. 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, no motor/sensory deficits, alert, normal mood/affect, oriented x 3 Skin: normal color, warm/dry, other ( ABOVE) Procedures/Interventions Suture Size: 4-0 Progress/Results/Core Measures Results/Orders Lab Results Laboratory Tests Test 07/25/19 16:25 Range/Units White Blood Count 9.3 4.3-11.0 10^3/uL Red Blood Count 4.65 4.35-5.85 10^6/uL Hemoglobin 13.6 13.3-17.7 G/DL Hematocrit 40 40-54 % Mean Corpuscular Volume 85 80-99 FL Mean Corpuscular Hemoglobin 29 25-34 PG Mean Corpuscular Hemoglobin Concent 34 32-36 G/DL Red Cell Distribution Width 13.7 10.0-14.5 % Platelet Count 282 130-400 10^3/uL Mean Platelet Volume 8.8 7.4-10.4 FL Neutrophils (%) (Auto) 46 42-75 % Lymphocytes (%) (Auto) 34 12-44 % Monocytes (%) (Auto) 11 0-12 % Eosinophils (%) (Auto) 8 0-10 % Basophils (%) (Auto) 0 0-10 % Neutrophils # (Auto) 4.3 1.8-7.8 X 10^3 Lymphocytes # (Auto) 3.2 1.0-4.0 X 10^3 Monocytes # (Auto) 1.0 0.0-1.0 X 10^3 Eosinophils # (Auto) 0.8 H 0.0-0.3 10^3/uL Basophils # (Auto) 0.0 0.0-0.1 10^3/uL Erythrocyte Sedimentation Rate 9 0-30 MM/HR Prothrombin Time 13.5 12.2-14.7 SEC INR Comment 1.0 0.8-1.4 Activated Partial Thromboplast Time 39 H 24-35 SEC Sodium Level 138 135-145 MMOL/L Potassium Level 4.8 3.6-5.0 MMOL/L Chloride Level 106 98-107 MMOL/L Carbon Dioxide Level 22 21-32 MMOL/L Anion Gap 10 5-14 MMOL/L Blood Urea Nitrogen 18 7-18 MG/DL Creatinine 1.11 0.60-1.30 MG/DL Estimat Glomerular Filtration Rate > 60 BUN/Creatinine Ratio 16 Glucose Level 99 70-105 MG/DL Calcium Level 8.3 L 8.5-10.1 MG/DL Corrected Calcium 8.5 8.5-10.1 MG/DL Total Bilirubin 0.3 0.1-1.0 MG/DL Aspartate Amino Transf (AST/SGOT) 34 5-34 U/L Alanine Aminotransferase (ALT/SGPT) 53 0-55 U/L Alkaline Phosphatase 103 40-136 U/L C-Reactive Protein High Sensitivity 0.28 0.00-0.50 MG/DL Total Protein 6.5 6.4-8.2 GM/DL Albumin 3.7 3.2-4.5 GM/DL My Orders Orders - ODALIS VALENZUELA DO Cbc With Automated Diff (07/25/19 16:20) Comprehensive Metabolic Panel (07/25/19 16:20) Hs C Reactive Protein (07/25/19 16:20) Erythrocyte Sedimentation Rate (07/25/19 16:20) Protime With Inr (07/25/19 16:20) Partial Thromboplastin Time (07/25/19 16:20) Enoxaparin Injection (Lovenox Injection) (07/25/19 16:30) Aspirin Chewable Tablet (Baby Aspirin Ch (07/25/19 16:30) Medications Given in ED Current Medications Medications Dose Ordered Sig/Venkat Route Start Time Stop Time Status Last Admin Dose Admin Aspirin 324 mg ONCE ONCE PO 07/25/19 16:30 07/25/19 16:31 DC 07/25/19 16:38 324 MG Enoxaparin Sodium 90 mg ONCE ONCE SC 07/25/19 16:30 07/25/19 16:31 DC 07/25/19 16:37 90 MG Vital Signs/I&O 07/25/19 07/25/19 16:12 16:45 Temp 36.6 Pulse 98 90 Resp 18 18 B/P (MAP) 154/110 (125) 150/100 Pulse Ox 98 96 Progress Progress Note : Progress Note NO ULTRASOUND AVAILABLE AT THIS TIME --WILL ORDER OUTPATIENT ULTRASOUND Departure Impression Primary Impression: PHLEBITIS RIGHT FOREARM Additional Impression: IV drug user Disposition: HOME, SELF-CARE Condition: Stable Departure-Patient Inst. Referrals: LORENZO DAWKINS MD Patient Instructions: PHLEBITIS-SUPERFICIAL, Phlebitis (DC), Drug Abuse and Drug Addiction (DC) Add. Discharge Instructions: MOIST HEAT TO AREA AT 20 MINUTE INTERVALS CONTINUE BACTRIM PRESCRIBED CALL IN THE MORNING TO SCHEDULE OUTPATIENT ULTRASOUND OF ARM FOLLOW UP WITH DR. DAWKINS / [facility] IN 2-3 DAYS FOR FURTHER CARE All discharge instructions reviewed with patient and/or family. Voiced understanding. Scripts Rivaroxaban (Xarelto Starter Pack) 1 Each Tab.ds.pk 1 EACH PO UD, #51 PKG 15mg by mouth twice daily x 21 days then 20mg by mouth daily Prov: BIANCA,ODALIS K DO 07/25/19 Aspirin (Aspirin EC) 325 Mg Tablet.dr 325 MG PO DAILY, #30 TAB Prov: BIANCA,ODALIS K DO 07/25/19 Clindamycin HCl (Clindamycin HCl) 300 Mg Capsule 300 MG PO QID for 10 Days, #40 CAP Prov: BIANCA,ODALIS K DO 07/25/19 BIANCA,ODALIS K DO July 25, 2019 16:29
[2019-07-25] MEDS ORDERED: ASPIRIN 81 MG CHEW (CHILDREN'S ASA) PO ONE (16:30)
[2019-07-25] MEDS ORDERED: ENOXAPARIN 100 MG/1 ML (LOVENOX) SYR SC ONE (16:30)
--- NOTE | 2019-07-25 16:31 | NUR ---
ORDER FOR VENOUS DOP TO BE DONE OP FAXED TO SCHEDULING AND GIVNE TO REG STAFF.
[2019-07-25 16:35] LABS: BASOPHILS % (AUTO) 0 % (0-10); EOSINOPHILS # (AUTO) 0.8 10^3/uL (0.0-0.3); EOSINOPHILS % (AUTO) 8 % (0-10); HEMATOCRIT 40 % (40-54); HEMOGLOBIN 13.6 G/DL (13.3-17.7); LYMPHOCYTES # (AUTO) 3.2 X 10^3 (1.0-4.0); LYMPHOCYTES % (AUTO) 34 % (12-44); MEAN CORPUSCULAR HEMOGLOBIN 29 PG (25-34); MEAN CORPUSCULAR HGB CONC 34 G/DL (32-36); MEAN CORPUSCULAR VOLUME 85 FL (80-99); MEAN PLATELET VOLUME 8.8 FL (7.4-10.4); MONOCYTES % (AUTO) 11 % (0-12); NEUTROPHILS # (AUTO) 4.3 X 10^3 (1.8-7.8); NEUTROPHILS % (AUTO) 46 % (42-75); PLATELET COUNT 282 10^3/uL (130-400); RED CELL DISTRIBUTION WIDTH 13.7 % (10.0-14.5); WHITE BLOOD COUNT 9.3 10^3/uL (4.3-11.0)
[2019-07-25 16:45] VITALS: BP 150/100
[2019-07-25 16:46] LABS: ALBUMIN 3.7 GM/DL (3.2-4.5); CHLORIDE 106 MMOL/L (98-107); POTASSIUM 4.8 MMOL/L (3.6-5.0); SODIUM 138 MMOL/L (135-145)
[2019-07-25 16:47] LABS: CALCIUM 8.3 MG/DL (8.5-10.1)
[2019-07-25 16:48] LABS: GLUCOSE 99 MG/DL (70-105); PROTHROMBIN TIME PATIENT 13.5 SEC (12.2-14.7)
[2019-07-25 16:49] LABS: TOTAL PROTEIN 6.5 GM/DL (6.4-8.2)
[2019-07-25 16:50] LABS: BILIRUBIN,TOTAL 0.3 MG/DL (0.1-1.0); CARBON DIOXIDE 22 MMOL/L (21-32)
[2019-07-25 16:52] LABS: ALKALINE PHOSPHATASE 103 U/L (40-136); CREATININE SERUM 1.11 MG/DL (0.60-1.30); GFR ESTIMATED > 60
[2019-07-25 16:53] LABS: BUN/CREATININE RATIO 16
[2019-07-25 16:55] LABS: ALANINE AMINOTRANSFERASE 53 U/L (0-55)
[2019-07-25 16:58] LABS: ERYTHROCYTE SEDIMENTATION RATE 9 MM/HR (0-30)
== END 2019-07-25 16:45 | disposition home or self-care (01) ==
LOC: EDUNIT# 16:08 → ER 16:09
DX: I80.8 Phlebitis and thrombophlebitis of other sites (principal); F15.90 Other stimulant use, unspecified, uncomplicated; F12.90 Cannabis use, unspecified, uncomplicated; I10 Essential (primary) hypertension; Z86.73 Personal history of transient ischemic attack (TIA), and cerebral infarction without residual deficits; Z88.1 Allergy status to other antibiotic agents; Z79.82 Long term (current) use of aspirin; Z79.52 Long term (current) use of systemic steroids; Z87.891 Personal history of nicotine dependence
CPT/HCPCS: 36415; 80053; 85025; 85610; 85652; 85730; 86141

== ENCOUNTER → 2019-07-28 | Outpatient (CLI) | payer MEDICARE, MEDICAID ==
[~2019-07-28] MED LIST changes: +ASPI325T32 PO; +CLIN300C11 PO; +RIVA1TAB PO
--- NOTE | 2019-07-28 16:35 | Diagnostic Imaging Report ---
TECHNIQUE: Color Doppler ultrasound of the right upper extremity venous system was performed. REASON FOR EXAM: Right arm phlebitis. COMPARISON: None. FINDINGS: Duplex Doppler, hokos-scale and color-flow imaging of the right upper extremity veins. The deep veins of the right upper extremity (subclavian, jugular, axillary, and brachial veins) show no evidence of intraluminal thrombosis, with normal compressibility, color flow, and augmentation. The radial and ulnar veins appear patent as well. A small partially occlusive thrombus is visualized within the mid to distal cephalic vein on the right. There is also scattered nonocclusive thrombus within the mid aspect of the right basilic vein. IMPRESSION: 1. No deep venous thrombosis seen in the right upper extremity veins. 2. Partially occlusive superficial venous thrombosis involving the right cephalic and basilic veins. Findings were called to Dr. Skinner's nurse by the manager of school at the time of the exam. Dictated by: Dictated on workstation # [id number]
== END ==
LOC: RAD 14:24
PROVIDERS: ATTEND Emergency Medicine
DX: I80.8 Phlebitis and thrombophlebitis of other sites (principal); I82.611 Acute embolism and thrombosis of superficial veins of right upper extremity

== ENCOUNTER 2021-09-09 11:35 | Emergency (ER) | payer MEDICARE, MEDICAID ==
[~2021-09-09] VITALS: Ht 182 cm; Wt 73.0 kg
[~2021-09-09 11:35] MED LIST changes: +CLIN-144 PO; -CLIN300C11 PO; +CYCL10TA25 PO; +SULF1TAB38 PO
--- NOTE | 2021-09-09 12:10 | ED Cough/URI ---
General Chief Complaint: COVID19 Suspect/Confirmed Stated Complaint: COVID EXPOSURE/BODY ACHES/CHILLS Nursing Triage Note: PT AMB TO TRIAGE. PT STATES HAS COVID. PT STATES HE HAS BODY ACHES, CHILLS NO FEVER. SL COUGH FOR APPROX 3 DAYS Source: patient (ASIA HESS) History of Present Illness Date Seen by Provider: Sep 09, 2021 Time Seen by Provider: 12:04 Severity/Quality: mild (ASIA HESS) Allergies and Home Medications Allergies Coded Allergies: levofloxacin (Verified Allergy, Mild, 08/06/16) Patient Home Medication List Home Medication List Reviewed: Yes (ASIA HESS) Albuterol Sulfate (Proair Hfa) 1 Puff Puff, 2 PUFF IH Q4H Prescribed by: Manuel Hess on 09/09/21 1310 Aspirin (Aspirin EC) 325 Mg Tablet.dr, 325 MG PO DAILY Prescribed by: ODALIS VALENZUELA on 07/25/191628 Clindamycin HCl (Clindamycin HCl) 300 Mg Capsule, 300 MG PO QID Prescribed by: ODALIS VALENZUELA on 07/25/191628 Cyclobenzaprine HCl (Cyclobenzaprine HCl) 10 Mg Tablet, 10 MG PO Q8H PRN for SPASMS Prescribed by: VESNA POWELL on 09/07/161923 Cyclobenzaprine HCl (Cyclobenzaprine HCl) 5 Mg Tablet, 5 MG PO TID PRN for PAIN- MODERATE TO SEVERE Prescribed by: LAURA LUNDBERG on 10/09/161748 Famotidine (Pepcid) 20 Mg Tablet, 20 MG PO BID Prescribed by: VESNA POWELL on 09/07/161923 Naproxen (Naprosyn) 500 Mg Tablet, 500 MG PO BID Prescribed by: VESNA POWELL on 09/07/161923 Naproxen (Naproxen) 500 Mg Tablet, 500 MG PO BID PRN for PAIN-SEVERE Prescribed by: LAURA LUNDBERG on 10/09/161748 Naproxen (Naprosyn) 500 Mg Tablet, 500 MG PO BID Prescribed by: STEVEN IBARRA on 12/28/161902 Ondansetron (Ondansetron Odt) 4 Mg Tab.rapdis, 4 MG PO Q6H PRN for NAUSEA/VOMIT ING Prescribed by: STEVEN IBARRA on 12/28/161926 Prednisone (Prednisone) 20 Mg Tab, 40 MG PO DAILY Prescribed by: VESNA POWELL on 09/07/161923 Prednisone (Prednisone) 20 Mg Tab, 40 MG PO DAILY Prescribed by: STEVEN IBARRA on 12/28/16 190 Promethazine/Dextromethorphan (Promethazine-Dm Syrup) 6.25 Mg-15 Mg/5 Ml Syrup, 5 ML PO Q6H PRN for COUGH Prescribed by: Manuel Hess on 09/09/21 1310 Rivaroxaban (Xarelto Starter Pack) 1 Each Tab.ds.pk, 1 EACH PO UD Prescribed by: ODALIS VALENZUELA on 07/25/19 1629 Sulfamethoxazole/Trimethoprim (Bactrim Ds Tablet) 1 Each Tablet, 1 EACH PO UD Prescribed by: VESNA POWELL on 01/05/19 1723 Sulfamethoxazole/Trimethoprim (Bactrim Ds Tablet) 1 Each Tablet, 1 EACH PO BID Prescribed by: HAYDEE MOORE on 07/19/19 1822 Review of Systems Review of Systems Constitutional: chills EENTM: nose congestion Respiratory: cough; No dyspnea on exertion, No short of breath Cardiovascular: no symptoms reported Gastrointestinal: no symptoms reported Genitourinary: no symptoms reported Musculoskeletal: muscle stiffness Skin: no symptoms reported Psychiatric/Neurological: No Symptoms Reported Hematologic/Lymphatic: No Symptoms Reported (ASIA HESS) Past Akarhkq-Fanekk-Ticyia Hx Patient Social History Tobacco Use?: No Substance use?: Yes Substance type: Marijuana Substance frequency: Couple times a week Alcohol Use?: No Pt feels they are or have been: No (ASIA HESS) Immunizations Up To Date Tetanus Booster (TDap): Less than 5yrs (ASIA HESS) Seasonal Allergies Seasonal Allergies: No (ASIA HESS) Past Medical History Surgeries: Yes (BACK SURGERY;STABBED IN L KNEE & L BUTTOCK;LIPOMA REMOVALS;EGD/COLONOSCOPY) Gallbladder, Orthopedic Respiratory: Yes Asthma Cardiac: Yes ( REPORTS HX HTN) Hypertension Neurological: Yes (APHASIA HX, narcolepsy) TIA Reproductive Disorders: No Sexually Transmitted Disease: No HIV/AIDS: No Genitourinary: Yes (EPIDIDYMO-ORCHITIS; INGUINAL HERNIAS-NO REPAIR DUE TO CONTINUED DRUG USE) Renal Failure Gastrointestinal: Yes (INGUINAL HERNIAS-NO REPAIR DUE TO DRUG USE; HEPATITIS C- NO TREATMENT) Abdominal Hernia, Liver Disease/Jaundice, Gastrointestinal Bleed, Hepatitis Musculoskeletal: Yes (BACK SURGERY; CHRONIC LEFT FOOT PAIN) Degenerate Disk Disease, Arthritis, Back Injury, Chronic Back Pain Endocrine: No HEENT: Yes (NO TEETH) Loss of Vision: Denies Hearing Impairment: Denies Cancer: No Psychosocial: Yes (POLYSUBSTANCE ABUSE) Bipolar, Personality Disorder Integumentary: No Blood Disorders: Yes (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 4.0oz. 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, no motor/sensory deficits, alert, oriented x 3 Skin: normal color, warm/dry (ASIA HESS) Procedures/Interventions Suture Size: 4-0 (ASIA HESS) Progress/Results/Core Measures Suspected Sepsis SIRS Temperature: Pulse: 98 Respiratory Rate: 18 Blood Pressure 168 /109 Mean: 128 (ASIA HESS) Results/Orders Lab Results Laboratory Tests Test 09/09/21 11:48 Range/Units Influenza Type A (RT-PCR) Not Detected Not Detecte Influenza Type B (RT-PCR) Not Detected Not Detecte SARS-CoV-2 RNA (RT-PCR) Detected H Not Detecte (GYPSY YODER MD) Vital Signs/I&O 09/09/21 09/09/21 11:38 12:55 Temp 36.8 Pulse 98 83 Resp 18 18 B/P (MAP) 168/109 (128) 170/113 Pulse Ox 98 98 (GYPSY YODER MD) Vital Signs/I&O Capillary Refill : Less Than 3 Seconds (ASIA HESS) Blood Pressure Mean: 128 Departure Communication (Admissions) Patient is afebrile, nontoxic and in no distress. His physical examination is very reassuring. At this time I presume he has COVID-19 since his tested +2 days ago. We will treat him symptomatically but I do not feel that he needs your monoclonal antibody therapy. He agrees to return if worse. (ASIA HESS) Impression Primary Impression: COVID-19 virus infection Disposition: 01 HOME, SELF-CARE Condition: Stable Departure-Patient Inst. Decision time for Depature: 13:11 (ASIA HESS) Referrals: NO,LOCAL PHYSICIAN (PCP/Family) Primary Care Physician Patient Instructions: COVID-19 (DC) Scripts Promethazine/Dextromethorphan (Promethazine-Dm Syrup) 6.25 Mg-15 Mg/5 Ml Syrup 5 ML PO Q6H PRN for COUGH for 7 Days, #240 ML Prov: ASIA HESS 09/09/21 Albuterol Sulfate (PROAIR HFA) 1 Puff Puff 2 PUFF IH Q4H for Cough for 7 Days, #1 EA 1 PUFF = 90 MCG Prov: ASIA HESS 09/09/21 ATTENDING PHYSICIAN NOTE: I was physically present as attending physician in the emergency department during the care of this patient, but I was not directly involved in the decision making or delivery of care for this patient. (GYPSY YODER MD) ASIA HESS Sep 09, 2021 12:10 GYPSY YODER MD Sep 11, 2021 17:51
[2021-09-09 12:55] VITALS: BP 170/113
[2021-09-09] MEDS ORDERED: RT-ALBUINH IH (13:10)
[2021-09-09] MEDS ORDERED: D-ME473S11 PO (13:10)
== END 2021-09-09 13:20 | disposition home or self-care (01) ==
LOC: EDUNIT# 11:35 → ER 11:37
DX: U07.1 COVID-19 (principal)
CPT/HCPCS: 87636